=== PATIENT | female | born 1975 | race Hispanic/Latino ===

== ENCOUNTER 2018-04-01 08:33 | Emergency (ER) | payer OTHER ==
[2018-04-01] MEDS ORDERED: MORPHINE 4 MG/ML SYR ONE (09:18)
[2018-04-01] MEDS ORDERED: ONDANSETRON 4 MG/2 ML VIAL ONE (09:18)
[2018-04-01 09:22] LABS: Urine Blood 3+ (NEG); Urine Glucose NEGATIVE (NEG); Urine Protein 2+ (NEG); Urine Specific Gravity 1.025 (1.005-1.030); Urine pH 6.5 (5.0-7.0)
[2018-04-01 09:40] LABS: Absolute Lymphocytes (CBC) 1.2 K/uL (0.7-4.9); Absolute Monocytes 0.8 K/uL (0.1-1.3); Basophils % 0.7 % (0-1.3); Eosinophils % 0.2 % (0-4.4); Hematocrit 39.5 % (36.0-45.0); Lymphocytes % 7.8 % (15.3-44.8); MCH 29.3 pg (27.0-35.0); MCV 87.2 fL (80-100); MPV 8.1 fL (7.6-11.3); RBC Red Blood Cell Count 4.53 M/uL (3.86-4.86)
--- NOTE | 2018-04-01 09:40 | RAD REPORT ---
EXAM DESCRIPTION: CT - Stone Protocol - 04/01/2018 9:30 am CLINICAL HISTORY: Right lower abdominal pain radiating to the back COMPARISON: None. TECHNIQUE: Axial 5 mm thick images were obtained without oral or IV contrast. The [id number] span s the entirety of the system including uppermost abdomen and lung bases. All CT scans are performed using dose optimization technique as appropriate and may include automated exposure control or mA/KV adjustment according to patient size. FINDINGS: Mild right-sided hydronephrosis is present along with stranding in the fatty tissues adjac ent to the ureter. No ureteral calculus present. There are phleboliths in the pelvis that are adjacen t to but not within the ureter. No bladder calculus. Urinary bladder is mostly contracted. No nonobst ructing calculi seen. There is subtle edema of the right kidney relative to the left. No left-sided h ydronephrosis. No suspicious renal masses. Isodense masses and pyelonephritis are not excluded on a s tone protocol CT scan. Right renal findings could indicate a recently passed stone. Blood, inflammato ry debris or even a small mass of the distal ureter can generate this pattern. Imaged portions of the liver, spleen and pancreas show no suspicious findings on non-contrast imaging . Liver shows a fatty infiltration pattern. Cholecystectomy clips are present with no biliary tree di latation. No significant adrenal finding. No suspicious bowel findings. No appendicitis or other acute GI process seen. Uterus and ovaries show no suspicious findings. Uterus appears to contain small fibroids. No mass or bulky lymphadenopathy. Small incidental umbilical hernia is present. No free air, free flu id or inflammatory stranding. No significant bony abnormality. IMPRESSION: Mild right-sided hydronephrosis without obstructing or nonobstructing calculi seen. Righ t kidney also appears mildly edematous relative the left. Patient may have had a recently passed stone. There is no calculus in the bladder. Blood, inflammator y debris and small ureteral mass can give a similar appearance. Isodense masses and pyelonephritis are not excluded on stone protocol study. Fatty infiltration of the liver. Isodense masses and pyelonephritis are not excluded on stone protocol technique.
[2018-04-01 09:47] LABS: Urine Bacteria 20-50 /HPF (<20); Urine Culture Reflex Order REFLEXED; Urine Mucus 1+ /HPF (NONE SEEN); Urine RBC >50 /HPF (NONE SEEN)
[2018-04-01 09:54] LABS: Bicarbonate 26 mEq/L (21-31); Glucose Level 100 mg/dL (65-120); Lipase 26 U/L (22-51); Potassium 3.9 mEq/L (3.6-5.0); Sodium Level 136 mEq/L (135-145)
[2018-04-01 10:00] LABS: ALT/SGPT 31 IU/L (10-60); AST/SGOT 33 IU/L (10-42); Albumin 3.9 g/dL (3.2-5.5); Alkaline Phosphatase 75 IU/L (42-121); Amylase Level 47 U/L (28-100); BUN Blood Urea Nitrogen 8 mg/dL (6-20); Bilirubin Direct 0.2 mg/dL (0-0.2); Bilirubin Total 0.8 mg/dL (0.3-1.2)
[2018-04-01] MEDS ORDERED: NA CHLORIDE 0.9% 1,000 ML ONE (10:12)
[2018-04-01 10:52] LABS: Blood Morphology Comment NOT SEEN (NOT SEEN); Platelet Estimate INCR; Urine White Blood Cell Casts OK
[2018-04-01] MEDS ORDERED: CEFTRIAXONE/SWI 2gm 2 GM/20 ML SYR IV ONE (11:00)
--- NOTE | 2018-04-01 11:54 | ER ---
Nurse's Notes [facility] Name: Bailey Robertson Age: 42 yrs Sex: Female : 1975 Arrival Date: 04/01/2018 Time: 08:36 Bed 14 Private MD: Diagnosis: Urinary tract infection, site not specified Presentation: 04/01 08:38 Presenting complaint: Patient states: abdominal pain down low, goes to my R side and ch into my back. started at 2300 last night. feels like pressure and I have to run to go pee but nothing comes out. Transition of care: patient was not received from another setting of care. Onset of symptoms was March 31, 2018 at 23:00. Initial Sepsis Screen: Does the patient meet any 2 criteria? No. Patient's initial sepsis screen is negative. Does the patient have a suspected source of infection? No. Patient's initial sepsis screen is negative. Care prior to arrival: None. 08:38 Method Of Arrival: Ambulatory 08:38 Acuity: JOSE 3 Triage Assessment: 08:39 General: Appears in no apparent distress. uncomfortable, Behavior is calm, cooperative, ch appropriate for age. Pain: Complains of pain in right lower quadrant and left lower quadrant Pain radiates to posterior aspect of right lateral abdomen and anterior aspect of right lateral abdomen Pain currently is 6 out of 10 on a pain scale. at worst was 8 out of 10 on a pain scale. 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 - Social history:: Smoking status: Patient/guardian denies using tobacco, Patient/guardian denies using alcohol, street drugs. Screenin:45 Abuse screen: Denies threats or abuse. Nutritional screening: No deficits noted. rb1 Tuberculosis screening: No symptoms or risk factors identified. Fall Risk None identified. Assessment: 08:45 General: Appears uncomfortable, obese, Behavior is calm, cooperative, Denies fever. rb1 Pain: Complains of pain in suprapubic area Pain radiates to right flank Pain currently is 8 out of 10 on a pain scale. Pain began Midnight last night. Neuro: Level of Consciousness is awake, alert, obeys commands, Oriented to person, place, time, situation. Cardiovascular: Capillary refill < 3 seconds is brisk in bilateral fingers. Respiratory: Airway is patent Respiratory effort is even, unlabored, Respiratory pattern is regular, symmetrical. GI: Bowel sounds present X 4 quads. Last bowel movement was last night, normal. : Reports pain flank(s), with urination. Derm: Skin is pink, warm \T\ dry. Musculoskeletal: Range of motion: intact in all extremities. 09:45 Reassessment: Patient appears in no apparent distress at this time. Patient and/or rb1 family updated on plan of care and expected duration. Pain level reassessed. Patient is alert, oriented x 3, equal unlabored respirations, skin warm/dry/pink. 10:40 Reassessment: Patient appears in no apparent distress at this time. Patient and/or rb1 family updated on plan of care and expected duration. Pain level reassessed. Patient is alert, oriented x 3, equal unlabored respirations, skin warm/dry/pink. Patient states feeling better. 11:39 Reassessment: Patient appears in no apparent distress at this time. No changes from rb1 previously documented assessment. 12:15 Reassessment: Patient appears in no apparent distress at this time. Patient and/or rb1 family updated on plan of care and expected duration. Pain level reassessed. Patient is alert, oriented x 3, equal unlabored respirations, skin warm/dry/pink. Vital Signs: 08:39 BP 146 / 85; Pulse 92; Resp 15; Temp 98.8; Pulse Ox 99% on R/A; Weight 102.97 kg; Height 5 ft. 7 in. (170.18 cm); Pain 6/10; 09:30 BP 156 / 91; Pulse 89; Resp 18; Pulse Ox 99% on R/A; rb1 10:30 BP 112 / 62; Pulse 79; Resp 17; Pulse Ox 97% on R/A; Pain 2/10; rb1 10:59 BP 112 / 64; Pulse 77; Resp 16; Pulse Ox 98% on R/A; mh5 11:30 BP 128 / 73; Pulse 77; Resp 17; Pulse Ox 96% on R/A; rb1 12:15 BP 126 / 68; Pulse 72; Resp 18; Pulse Ox 99% on R/A; rb1 08:39 Body Mass Index 35.55 (102.97 kg, 170.18 cm) ED Course: 08:36 Patient arrived in ED. sb2 08:39 Triage completed. 08:39 Arm band placed on left wrist. Patient placed in an exam room, on a stretcher. ch 08:48 Amber Tirado, RN is Primary Nurse. rb1 08:52 Darnell Chaves PA is PHCP. cp 08:52 Shira Ma MD is Attending Physician. cp 08:52 Urine collected: clean catch specimen, cloudy. mh5 08:53 Patient has correct armband on for positive identification. Placed in gown. Bed in low mh5 position. Call light in reach. Adult w/ patient. Warm blanket given. Pillow given. Pulse ox on. NIBP on. 09:00 Missed attempt(s): 22 gauge in right antecubital area. rb1 09:10 Inserted saline lock: 22 gauge in left antecubital area, using aseptic technique. Blood rb1 collected. 09:16 Urine Microscopic Only Sent. mh5 09:16 Urine Dipstick--Ancillary (enter results) Sent. mh5 09:16 Urine --Ancillary (enter results) Sent. mh5 09:28 CT completed. Patient tolerated procedure well. Patient moved to CT via wheelchair. sj Patient moved back from CT. 09:29 CT Stone Protocol In Process Unspecified. EDMS 12:21 No provider procedures requiring assistance completed. IV discontinued, intact, jl7 bleeding controlled, No redness/swelling at site. Pressure dressing applied. Administered Medications: 09:15 Drug: morphine 4 mg Route: IVP; Site: left antecubital; rb1 09:45 Follow up: Response: No adverse reaction; Pain is decreased rb1 09:15 Drug: Zofran 4 mg Route: IVP; Site: left antecubital; rb1 09:45 Follow up: Response: No adverse reaction; Nausea is decreased rb1 10:21 Drug: NS 0.9% 1000 ml Route: IV; Rate: 1 bolus; Site: left antecubital; rb1 11:38 Follow up: IV Status: Completed infusion rb1 10:30 Drug: Rocephin - (cefTRIAXone) 2 grams {Note: Had to wait for pharmacy to bring rb1 medication to the floor.} Route: IVPB; Infused Over: 30 mins; Site: left antecubital; Outcome: 11:53 Discharge ordered by . hailey 12:21 Discharged to home ambulatory, with family. rodolfo 12:21 Condition: stable 12:21 Discharge instructions given to patient, family, Instructed on discharge instructions, follow up and referral plans. medication usage, Demonstrated understanding of instructions, follow-up care, medications, Prescriptions given X 2. 12:22 Patient left the ED. jl7 Addendum: 04/04/2018 18:38 Addendum: Culture Results: Positive urine culture. Bacteria is resistant to, has i w intermediate sensitivity, or is not tested against prescribed antibiotics. Report given to NURIS for further evaluation and then to car detailer for follow up with patient. Phone call Attempt #1 pt did not answer, wrong number. Signatures: Dispatcher [employer] EDMS Michell Hilario, Faith Archer RN, ch, Irene, RN RN iw Page, Corey, BHASKAR PA Amber Spaulding, RN RN Vanessa Ervin Suha Zuniga RN RN jl7 Heike Frey sb2 Corrections: (The following items were deleted from the chart) 04/01 09:28 09:28 Missed attempt(s): 22 gauge in right antecubital area. rb1 rb1 09:29 09:15 Inserted saline lock: 22 gauge in left antecubital area, using aseptic technique. rb1 Blood collected. rb1
--- NOTE | 2018-04-01 11:54 | EDPHYS ---
Physician Documentation [facility] Name: Bailey Robertson Age: 42 yrs Sex: Female : 1975 Arrival Date: 04/01/2018 Time: 08:36 Bed 14 Private MD: ED Physician Shira Ma HPI: 04/01 09:00 This 42 yrs old Female presents to ER via Ambulatory with complaints of RIGHT cp SIDE PAIN. 09:00 The patient presents with abdominal pain in the right upper quadrant, right lower cp quadrant. 09:00 Onset: The symptoms/episode began/occurred last night, and became worse today. cp Associated signs and symptoms: Pertinent positives: nausea, urinary urgency, urinary frequency, Pertinent negatives: constipation, diarrhea, fever, vomiting. The symptoms are described as pressure. 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 - Social history:: Smoking status: Patient/guardian denies using tobacco, Patient/guardian denies using alcohol, street drugs. ROS: 09:05 Constitutional: Negative for body aches, chills, fever, poor PO intake. cp 09:05 Eyes: Negative for injury, pain, redness, and discharge. cp 09:05 ENT: Negative for drainage from ear(s), ear pain, sore throat, difficulty swallowing, difficulty handling secretions. 09:05 Cardiovascular: Negative for chest pain, edema, palpitations. 09:05 Respiratory: Negative for cough, shortness of breath, wheezing. 09:05 Abdomen/GI: Positive for abdominal pain, nausea, of the posterior aspect of right lateral abdomen, anterior aspect of right lateral abdomen and right lower quadrant, Negative for vomiting, diarrhea, constipation. 09:05 Back: Positive for flank pain, on the right, Negative for injury or acute deformity. 09:05 Skin: Negative for cellulitis, rash. 09:05 Neuro: Negative for altered mental status, headache, weakness. 09:05 All other systems are negative. Exam: 09:12 Constitutional: The patient appears in no acute distress, alert, awake, non-toxic, well cp developed, well nourished, uncomfortable. 09:12 Head/Face: Normocephalic, atraumatic. Eyes: Pupils equal round and reactive to light, cp extra-ocular motions intact. Lids and lashes normal. Conjunctiva and sclera are non-icteric and not injected. Cornea within normal limits. Periorbital areas with no swelling, redness, or edema. ENT: Nares patent. No nasal discharge, no septal abnormalities noted. Tympanic membranes are normal and external auditory canals are clear. Oropharynx with no redness, swelling, or masses, exudates, or evidence of obstruction, uvula midline. Mucous membranes moist. Neck: Trachea midline, no thyromegaly or masses palpated, and no cervical lymphadenopathy. Supple, full range of motion without nuchal rigidity, or vertebral point tenderness. No Meningismus. Chest/axilla: Normal chest wall appearance and motion. Nontender with no deformity. No lesions are appreciated. Cardiovascular: Regular rate and rhythm with a normal S1 and S2. No gallops, murmurs, or rubs. Normal PMI, no JVD. No pulse deficits. Respiratory: Lungs have equal breath sounds bilaterally, clear to auscultation and percussion. No rales, rhonchi or wheezes noted. No increased work of breathing, no retractions or nasal flaring. 09:12 Abdomen/GI: Inspection: abdomen appears normal, Bowel sounds: active, all quadrants, Palpation: soft, in all quadrants, moderate abdominal tenderness, in the posterior aspect of right lateral abdomen, anterior aspect of right lateral abdomen and right lower quadrant, rebound tenderness, is not appreciated, voluntary guarding, is elicited in the posterior aspect of right lateral abdomen, anterior aspect of right lateral abdomen and right lower quadrant. 09:12 Back: pain, that is moderate, of the right mid back, ROM is normal. 09:12 Skin: cellulitis, is not appreciated, no rash present. Vital Signs: 08:39 BP 146 / 85; Pulse 92; Resp 15; Temp 98.8; Pulse Ox 99% on R/A; Weight 102.97 kg; ch Height 5 ft. 7 in. (170.18 cm); Pain 6/10; 09:30 BP 156 / 91; Pulse 89; Resp 18; Pulse Ox 99% on R/A; rb1 10:30 BP 112 / 62; Pulse 79; Resp 17; Pulse Ox 97% on R/A; Pain 2/10; rb1 10:59 BP 112 / 64; Pulse 77; Resp 16; Pulse Ox 98% on R/A; mh5 11:30 BP 128 / 73; Pulse 77; Resp 17; Pulse Ox 96% on R/A; rb1 12:15 BP 126 / 68; Pulse 72; Resp 18; Pulse Ox 99% on R/A; rb1 08:39 Body Mass Index 35.55 (102.97 kg, 170.18 cm) ch MDM: 08:52 Patient medically screened. cp 10:00 Differential diagnosis: appendicitis, gastritis, pancreatitis, Pyelonephritis, cp Ureterolithiasis, urinary tract infection. 11:50 Data reviewed: vital signs, nurses notes, lab test result(s), radiologic studies, CT cp scan. 11:50 Counseling: I had a detailed discussion with the patient and/or guardian regarding: the cp historical points, exam findings, and any diagnostic results supporting the discharge/admit diagnosis, lab results, radiology results, the need for outpatient follow up, a family practitioner, to return to the emergency department if symptoms worsen or persist or if there are any questions or concerns that arise at home. Response to treatment: the patient's symptoms have markedly improved after treatment, and as a result, I will discharge patient. 04/01 08:54 Order name: Urine Dipstick--Ancillary (enter results); Complete Time: 09:43 ag 05 09:43 Interpretation: Normal except: UBLD 3+; UPROT 2+; U NIT POSITIVE; UESTR 3+. cp 04/01 08:54 Order name: Urine --Ancillary (enter results); Complete Time: 09:43 ag 04/01 09:03 Order name: Amylase, Serum; Complete Time: 11:24 cp 04/01 09:03 Order name: Basic Metabolic Panel; Complete Time: 11:24 cp 04/01 09:03 Order name: CBC with Diff; Complete Time: 11:24 cp 04/01 11:25 Interpretation: Normal except: WBC 15.1; MCV 87.2; PLT 417; PIPER% 86.3; LYM% 7.8; NEUT A cp 13.0. 04/01 09:03 Order name: Creatinine for Radiology; Complete Time: 11:24 cp 04/01 09:03 Order name: Hepatic Function; Complete Time: 11:24 cp 04/01 11:25 Interpretation: Normal except: GLOB 4.1; A/G 1.0. cp 04/01 09:03 Order name: Lipase; Complete Time: 11:24 cp 04/01 09:03 Order name: Urine Microscopic Only; Complete Time: 09:51 cp 04/01 09:51 Interpretation: Normal except: UWBC 20-50; URBC >50; UBACT 20-50; SQEPI 5-10. cp 04/01 09:03 Order name: CT Stone Protocol; Complete Time: 09:43 cp 04/01 09:49 Order name: Urine Culture EDNH 04/01 10:00 Order name: CBC Smear Scan; Complete Time: 11:24 EDNH 04/01 09:03 Order name: IV Saline Lock; Complete Time: 09:31 cp 04/01 09:03 Order name: Labs collected and sent; Complete Time: 09:31 cp 04/01 09:03 Order name: Urine Dipstick-Ancillary (obtain specimen); Complete Time: 09:31 cp 04/01 11:25 Order name: PO challenge; Complete Time: 11:49 cp Administered Medications: 09:15 Drug: morphine 4 mg Route: IVP; Site: left antecubital; rb1 09:45 Follow up: Response: No adverse reaction; Pain is decreased rb1 09:15 Drug: Zofran 4 mg Route: IVP; Site: left antecubital; rb1 09:45 Follow up: Response: No adverse reaction; Nausea is decreased rb1 10:21 Drug: NS 0.9% 1000 ml Route: IV; Rate: 1 bolus; Site: left antecubital; rb1 11:38 Follow up: IV Status: Completed infusion rb1 10:30 Drug: Rocephin - (cefTRIAXone) 2 grams {Note: Had to wait for pharmacy to bring rb1 medication to the floor.} Route: IVPB; Infused Over: 30 mins; Site: left antecubital; Disposition: 04/01/18 11:53 Discharged to Home. Impression: Urinary tract infection, site not specified. - Condition is Stable. - Discharge Instructions: Urinary Tract Infection. - Prescriptions for Zofran 4 mg Oral Tablet - take 1 tablet by ORAL route every 12 hours As needed; 20 tablet. Bactrim DS 800- 160 mg Oral Tablet - take 1 tablet by ORAL route every 12 hours for 10 days; 20 tablet. - Medication Reconciliation Form, Thank You Letter, Antibiotic Education, Prescription Opioid Use form. - Follow up: Private Physician; When: 1 - 2 days; Reason: Recheck today's complaints. - Problem is new. - Symptoms have improved. Addendum: 04/06/2018 19:54 Co-signature as Attending Physician, Shira Ma MD. m a2 Signatures: Dispatcher [employer] EDMS Michell Hilario, RN RN Darnell Chaves PA PA cp Amber Tirado, RN RN rb1 Suha Parrish RN RN jl7 Shira Ma MD MD ma2 Corrections: (The following items were deleted from the chart) 04/01 12:22 11:53 04/01/2018 11:53 Discharged to Home. Impression: Urinary tract infection, site jl7 not specified. Condition is Stable. Forms are Medication Reconciliation Form, Thank You Letter, Antibiotic Education, Prescription Opioid Use. Follow up: Private Physician; When: 1 - 2 days; Reason: Recheck today's complaints. Problem is new. Symptoms have improved. cp
== END 2018-04-01 12:22 | disposition home or self-care (01) ==
LOC: ER 08:33
DX: N39.0 Urinary tract infection, site not specified (principal)
CPT/HCPCS: 36415; 74176; 76377; 80048; 80076; 81003; 81015; 81025; 82150; 83690; 85025; 87077; 87086; 87088; 87186; 96361; 96374; 96375; 99284; J0696; J2405; J7030

== ENCOUNTER 2020-09-11 21:55 | Emergency (ER) | payer OTHER, SELFPAY ==
--- OUTSIDE RECORDS SUMMARY | 2020-09-11 21:58 | XMS REPORT | Continuity of Care Document ---
:1975 Author Organization [facility] t Address [address] [place] [address] Care Team Providers Name Role Phone Unavailable Unavailable Unavailable Problems This patient has no known problems. Allergies, Adverse Reactions, Alerts This patient has no known allergies or adverse reactions. Medications This patient has no known medications. Procedures This patient has no known procedures. Results Test Description Test Time Test Comments Results Result Sourc e Comments SCR MAMM 2019-05-04 SCR MAMM BILATERAL BILATERAL CAD 10:44:36 CAD DIGITALBILATERAL DIGITAL DIGITAL SCREENING MAMMOGRAM WITH CAD: 04/23/2019CLINICAL: Asymptomatic. Current mammographic images were evaluated by either a [employer] M-Vu or a [employer] ImageChecker CAD (computer aided detection system). Comparison is made to exam dated 02/25/2017 mammogram - [facility]. There are scattered fibroglandular tissues in both breasts. There is a benign intramammary node in both breasts. There also is a benign calcification in the left breast. No suspicious mass, architectural distortion, malignant type calcification, or lymph node abnormality detected. Breast architecture is stable compared to prior exams.IMPRESSION: BENIGNThere is no mammographic evidence of malignancy. Resume annual screening mammography in one year. Yandel hammond/gael:05/04/2019 10:44:36 Integrity Engineer: Karley Weaver MM, [facility]: BIRADS 1-2 Normal Mammogram BI-RADS: 2 Benign
--- NOTE | 2020-09-11 22:09 | EDPHYS ---
Physician Documentation [facility] Name: Bailey Robertson Age: 45 yrs Sex: Female : 1975 Arrival Date: 09/11/2020 Time: 21:58 Bed 5 Private MD: ED Physician Haseeb Lozoya HPI: 09/11 22:30 This 45 yrs old Female presents to ER via Ambulatory with complaints of snw Puncture Wound To Foot. 22:30 The patient presents with an injury, pain, that is acute. The complaints affect the snw left foot. Context: The problem was sustained outdoors, Mechanism of Injury: accidentally kicked a rake and sustained small laceration to dorsum of left foot the patient can fully bear weight. Onset: The symptoms/episode began/occurred suddenly, at 14:00. Associated signs and symptoms: The patient has no apparent associated signs or symptoms. Severity of symptoms: At their worst the symptoms were moderate. The patient has not experienced similar symptoms in the past. It is unknown whether or not the patient has recently seen a physician. 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 - Social history:: Smoking status: Patient denies any tobacco usage or history of. ROS: 22:28 Constitutional: Negative for fever, chills, and weight loss, Eyes: Negative for injury, snw pain, redness, and discharge, ENT: Negative for injury, pain, and discharge, Neck: Negative for injury, pain, and swelling, Cardiovascular: Negative for chest pain, palpitations, and edema, Respiratory: Negative for shortness of breath, cough, wheezing, and pleuritic chest pain, Abdomen/GI: Negative for abdominal pain, nausea, vomiting, diarrhea, and constipation, Back: Negative for injury and pain, : Negative for injury, bleeding, discharge, and swelling, MS/Extremity: Negative for injury and deformity, Neuro: Negative for headache, weakness, numbness, tingling, and seizure, Psych: Negative for depression, anxiety, suicide ideation, homicidal ideation, and hallucinations. 22:28 Skin: Positive for laceration(s), of the dorsum of left foot. Exam: 22:28 Constitutional: This is a well developed, well nourished patient who is awake, alert, snw and in no acute distress. Head/Face: Normocephalic, atraumatic. Eyes: Pupils equal round and reactive to light, extra-ocular motions intact. Lids and lashes normal. Conjunctiva and sclera are non-icteric and not injected. Cornea within normal limits. Periorbital areas with no swelling, redness, or edema. ENT: Nares patent. No nasal discharge, no septal abnormalities noted. Tympanic membranes are normal and external auditory canals are clear. Oropharynx with no redness, swelling, or masses, exudates, or evidence of obstruction, uvula midline. Mucous membranes moist. Neck: Trachea midline, no thyromegaly or masses palpated, and no cervical lymphadenopathy. Supple, full range of motion without nuchal rigidity, or vertebral point tenderness. No Meningismus. Cardiovascular: Regular rate and rhythm with a normal S1 and S2. No gallops, murmurs, or rubs. Normal PMI, no JVD. No pulse deficits. Respiratory: Lungs have equal breath sounds bilaterally, clear to auscultation and percussion. No rales, rhonchi or wheezes noted. No increased work of breathing, no retractions or nasal flaring. Abdomen/GI: Soft, non-tender, with normal bowel sounds. No distension or tympany. No guarding or rebound. No evidence of tenderness throughout. Back: No spinal tenderness. No costovertebral tenderness. Full range of motion. Skin: Warm, dry with normal turgor. Normal color with no rashes, no lesions, and no evidence of cellulitis. dorsum of left foot with small puncture wound. No bleeding, no erythema, minimal edema MS/ Extremity: Pulses equal, no cyanosis. Neurovascular intact. Full, normal range of motion. Psych: Awake, alert, with orientation to person, place and time. Behavior, mood, and affect are within normal limits. 22:28 Chest/axilla: Inspection: normal, Palpation: is normal, Axilla: are normal. 22:28 Neuro: Orientation: is normal, Mentation: is normal. Vital Signs: 22:08 BP 164 / 95; Pulse 103; Resp 16 S; Temp 98.7(O); Pulse Ox 100% on R/A; Weight 102.06 kg bb (R); Height 5 ft. 7 in. (170.18 cm) (R); Pain 5/10; 22:08 Body Mass Index 35.24 (102.06 kg, 170.18 cm) bb MDM: 22:08 Patient medically screened. snw 22:30 Data reviewed: vital signs, nurses notes. Data interpreted: Pulse oximetry: on room air snw is 100 %. Interpretation: normal. Counseling: I had a detailed discussion with the patient and/or guardian regarding: the historical points, exam findings, and any diagnostic results supporting the discharge/admit diagnosis, the need for outpatient follow up, to return to the emergency department if symptoms worsen or persist or if there are any questions or concerns that arise at home. Special discussion: Based on the history and exam findings, there is no indication for further emergent testing or inpatient evaluation. I discussed with the patient/guardian the need to see the primary care provider for further evaluation of the symptoms. 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 Exp: bb 01/21/2023. Lot #: [id number]. } Route: IM; Site: right deltoid; 22:30 Drug: TORadol 60 mg Route: IM; Site: right gluteus; bb Disposition: 23:32 Co-signature as Attending Physician, Haseeb Lozoya MD. tw4 23:32 I agree with the assessment and plan of care. tw4 Disposition: 09/11/20 22:08 Discharged to Home. Impression: Puncture wound without foreign body of foot. - Condition is Stable. - Discharge Instructions: Puncture Wound, Wound Infection, VIS, Tetanus, Diphtheria (Td) - CDC, Wound Care. - Prescriptions for Ultram 50 mg Oral Tablet - take 1 tablet by ORAL route every 6 hours As needed; 12 tablet. Doxycycline Hyclate 100 mg Oral Tablet - take 1 tablet by ORAL route every 12 hours; 20 tablet. - Medication Reconciliation Form, Thank You Letter, Antibiotic Education, Prescription Opioid Use form. - Follow up: Emergency Department; When: As needed; Reason: Worsening of condition. Follow up: Private Physician; When: 1 week; Reason: Recheck today's complaints, Continuance of care, Re-evaluation by your physician. Signatures: Virgen Hancock FNP-C MINE EXPLORATION ENGINEER-[employer] Sulma Mabry RN RN bb Wadley, Terrence, MD MD tw4 Corrections: (The following items were deleted from the chart) 22:30 22:28 Constitutional: This is a well developed, well nourished patient who is awake, snw alert, and in no acute distress. Head/Face: Normocephalic, atraumatic. Eyes: Pupils equal round and reactive to light, extra-ocular motions intact. Lids and lashes normal. Conjunctiva and sclera are non-icteric and not injected. Cornea within normal limits. Periorbital areas with no swelling, redness, or edema. ENT: Nares patent. No nasal discharge, no septal abnormalities noted. Tympanic membranes are normal and external auditory canals are clear. Oropharynx with no redness, swelling, or masses, exudates, or evidence of obstruction, uvula midline. Mucous membranes moist. Neck: Trachea midline, no thyromegaly or masses palpated, and no cervical lymphadenopathy. Supple, full range of motion without nuchal rigidity, or vertebral point tenderness. No Meningismus. Cardiovascular: Regular rate and rhythm with a normal S1 and S2. No gallops, murmurs, or rubs. Normal PMI, no JVD. No pulse deficits. Respiratory: Lungs have equal breath sounds bilaterally, clear to auscultation and percussion. No rales, rhonchi or wheezes noted. No increased work of breathing, no retractions or nasal flaring. Abdomen/GI: Soft, non-tender, with normal bowel sounds. No distension or tympany. No guarding or rebound. No evidence of tenderness throughout. Back: No spinal tenderness. No costovertebral tenderness. Full range of motion. Skin: Warm, dry with normal turgor. Normal color with no rashes, no lesions, and no evidence of cellulitis. MS/ Extremity: Pulses equal, no cyanosis. Neurovascular intact. Full, normal range of motion. Psych: Awake, alert, with orientation to person, place and time. Behavior, mood, and affect are within normal limits. snw 22:31 22:08 09/11/2020 22:08 Discharged to Home. Impression: Puncture wound without foreign bb body of foot. Condition is Stable. Forms are Medication Reconciliation Form, Thank You Letter, Antibiotic Education, Prescription Opioid Use. Follow up: Emergency Department; When: As needed; Reason: Worsening of condition. Follow up: Private Physician; When: 1 week; Reason: Recheck today's complaints, Continuance of care, Re-evaluation by your physician. snw
[2020-09-11] MEDS ORDERED: KETOROLAC 30 MG/ML INJ ONE (22:30)
[2020-09-11] MEDS ORDERED: TETANUS & DIPHTHERIA TOX,ADULT 0.5 ML VIAL ONE (22:30)
[2020-09-11] MEDS ORDERED: DOXYCYCLINE 100 MG CAP PO ONE (22:30)
--- NOTE | 2020-09-11 22:32 | ER ---
Nurse's Notes [facility] Name: Bailey Robertson Age: 45 yrs Sex: Female : 1975 Arrival Date: 09/11/2020 Time: 21:58 Bed 5 Private MD: Diagnosis: Puncture wound without foreign body of foot Presentation: 09/11 22:08 Chief complaint: Patient states: she was helping clean up in the yard and ran into a pitchfork receiving a puncture wound to the top of her left foot she cleaned and disinfected it but now it is swollen. Coronavirus screen: At this time, the client does not indicate any symptoms associated with coronavirus-19. Ebola Screen: No symptoms or risks identified at this time. Initial Sepsis Screen: Does the patient meet any 2 criteria? No. Patient's initial sepsis screen is negative. Does the patient have a suspected source of infection? No. Patient's initial sepsis screen is negative. Risk Assessment: Do you want to hurt yourself or someone else? Patient reports no desire to harm self or others. Onset of symptoms was September 11, 2020. 22:08 Method Of Arrival: Ambulatory bb 22:08 Acuity: JOSE 4 bb Triage Assessment: 22:10 General: Appears in no apparent distress. Behavior is calm, cooperative. Pain: bb Complains of pain in left foot Pain currently is 0 out of 10 on a pain scale. at worst was 5 out of 10 on a pain scale. Neuro: Level of Consciousness is awake, alert, obeys commands, Oriented to person, place, time, situation. Respiratory: Respiratory effort is even, unlabored, Respiratory pattern is regular. Derm: Skin is pink, warm \T\ dry. Musculoskeletal: Circulation, motion, and sensation intact. Reports pain in left foot puncture wound to top of left foot. 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 - Social history:: Smoking status: Patient denies any tobacco usage or history of. Screenin:12 Abuse screen: Denies threats or abuse. Nutritional screening: No deficits noted. bb Tuberculosis screening: No symptoms or risk factors identified. Fall Risk None identified. Assessment: 22:12 Reassessment: No changes from previously documented assessment. see triage assessment. bb Vital Signs: 22:08 BP 164 / 95; Pulse 103; Resp 16 S; Temp 98.7(O); Pulse Ox 100% on R/A; Weight 102.06 kg bb (R); Height 5 ft. 7 in. (170.18 cm) (R); Pain 5/10; 22:08 Body Mass Index 35.24 (102.06 kg, 170.18 cm) bb ED Course: 21:58 Patient arrived in ED. bp1 22:02 Virgen Hancock [facility]C [facility] snw 22:02 Haseeb Lozoya MD is Attending Physician. snw 22:10 Triage completed. bb 22:10 Arm band placed on Patient placed in an exam room, on a stretcher, on pulse oximetry. bb 22:12 Patient has correct armband on for positive identification. Bed in low position. Call bb light in reach. Side rails up X 1. Warm blanket given. 22:12 No provider procedures requiring assistance completed. Patient did not have IV access bb during this emergency room visit. 22:20 Wound care: to puncture located on left foot was cleaned with Hibiclens, dressed with bb Neosporin, band aid. 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 Exp: bb 01/21/2023. Lot #: [id number]. } Route: IM; Site: right deltoid; 22:30 Drug: TORadol 60 mg Route: IM; Site: right gluteus; bb Outcome: 22:08 Discharge ordered by . snw 22:27 Discharged to home ambulatory. 22:27 Condition: stable 22:27 Discharge instructions given to patient, Instructed on discharge instructions, follow up and referral plans. no drinking with medication, no driving heavy equipment, medication usage, wound care, Demonstrated understanding of instructions, follow-up care, medications, wound care, Prescriptions given X 2. 22:31 Patient left the ED. bb Signatures: Virgen Hancock, [employer]-C [employer] Sulma Mabry, RN RN Emmanuelle Moss Brittany bp1
[2020-09-11 22:45] VITALS: BP 164/95; TEMP 98.7; O2SAT 100
== END 2020-09-11 22:31 | disposition home or self-care (01) ==
LOC: ER 21:55
DX: S91.332A Puncture wound without foreign body, left foot, initial encounter (principal); W22.8XXA Striking against or struck by other objects, initial encounter; Y93.89 Activity, other specified; Y92.89 Other specified places as the place of occurrence of the external cause; Z23 Encounter for immunization
CPT/HCPCS: 90471; 90714; 96372; 99284

== ENCOUNTER 2020-12-21 18:49 | Observation (INO) | payer OTHER ==
--- NOTE | 2020-12-21 21:28 | RAD REPORT ---
EXAM DESCRIPTION: RAD - Chest Single View - 12/21/2020 9:20 pm CLINICAL HISTORY: Cough;Dyspnea Chest pain. COMPARISON: No comparisons FINDINGS: Portable technique limits examination quality. Mild bilateral interstitial lung opacities are noted suspicious for viral bronchitis. The heart is no rmal in size. No displaced fractures.
[2020-12-21 21:29] LABS: Absolute Lymphocytes (CBC) 1.4 K/uL (0.7-4.9); Basophils % 0.5 % (0-1.3); Hematocrit 35.4 % (36.0-45.0); Lymphocytes % 19.5 % (15.3-44.8); MPV 7.8 fL (7.6-11.3); RBC Red Blood Cell Count 4.48 M/uL (3.86-4.86)
[2020-12-21] MEDS ORDERED: ENOXAPARIN 100 MG/ML SYR SQ ONE (21:34)
[2020-12-21] MEDS ORDERED: ASPIRIN 81 MG CHEWABLE TABLET ONE (21:34)
[2020-12-21] MEDS ORDERED: dexAMETHasone 10 MG/ML VIAL ONE (21:34)
[2020-12-21] MEDS ORDERED: FAMOTIDINE 20 MG/2 ML VIAL IV ONE (21:34)
[2020-12-21] MEDS ORDERED: NA CHLORIDE 0.9% 1,000 ML ONE (21:34)
[2020-12-21] MEDS ORDERED: CEFTRIAXONE/SWI 1gm 1 GM/10 ML SYR ONE (21:34)
[2020-12-21] MEDS ORDERED: ALBUTEROL INHALER 60 PUFF/8 GM IH ONE (21:35)
[2020-12-21] MEDS ORDERED: AZITHROMYCIN 500 MG INJ IVPB ONE (21:36)
[2020-12-21] MEDS ORDERED: NA CHLORIDE 0.9% 250 ML ONE (21:37)
[2020-12-21 21:51] LABS: ALT/SGPT 66 U/L (12-78); AST/SGOT 73 U/L (15-37); Alkaline Phosphatase 106 U/L (45-117); BUN Blood Urea Nitrogen 9 mg/dL (7-18); Bicarbonate 29 mmol/L (21-32); Bilirubin Direct 0.2 mg/dL (0-0.2); Bilirubin Total 0.8 mg/dL (0.2-1.0); Glucose Level 96 mg/dL (74-106); Magnesium 2.3 mg/dL (1.8-2.4); NT PRO-BNP 27 pg/mL (<125); Potassium 3.2 mmol/L (3.5-5.1); Protein, Total 8.4 g/dL (6.4-8.2); Sodium Level 137 mmol/L (136-145); Troponin (Emerg Dept Use Only) < 0.02 ng/mL (0.0-0.045)
[2020-12-21 21:59] LABS: Protime INR 1.09
--- NOTE | 2020-12-21 22:43 | EDPHYS ---
Physician Documentation [facility] Name: Bailey Robertson Age: 45 yrs Sex: Female : 1975 Arrival Date: 12/21/2020 Time: 18:53 Bed 5 Private MD: ED Physician Darnell Finney HPI: 12/21 21:05 This 45 yrs old Female presents to ER via Ambulatory with complaints of jesus COVID+, Breathing Difficulty. 21:05 The patient has shortness of breath at rest, with light activity. Onset: The jesus symptoms/episode began/occurred 7 day(s) ago. Duration: The symptoms are continuous, and are steadily getting worse. The patient's shortness of breath is aggravated by coughing, is alleviated by nothing. Associated signs and symptoms: The patient has no apparent associated signs or symptoms. Severity of symptoms: At their worst the symptoms were mild in the emergency department the symptoms are unchanged. The patient has not experienced similar symptoms in the past. Historical: - Allergies: 18:59 No Known Allergies; ll1 - PMHx: 18:59 None; ll1 - PSHx: 18:59 Cholecystectomy; Tubal ligation; ll1 - Immunization history:: Flu vaccine is not up to date. - Social history:: Smoking status: Patient denies any tobacco usage or history of. ROS: 21:06 Constitutional: Negative for fever, chills, and weight loss, Eyes: Negative for injury, jesus pain, redness, and discharge, ENT: Negative for injury, pain, and discharge, Neck: Negative for injury, pain, and swelling, Abdomen/GI: Negative for abdominal pain, nausea, vomiting, diarrhea, and constipation, Back: Negative for injury and pain, : Negative for injury, bleeding, discharge, and swelling, MS/Extremity: Negative for injury and deformity, Skin: Negative for injury, rash, and discoloration, Neuro: Negative for headache, weakness, numbness, tingling, and seizure, Psych: Negative for depression, anxiety, suicide ideation, homicidal ideation, and hallucinations, Allergy/Immunology: Negative for hives, rash, and allergies, Endocrine: Negative for neck swelling, polydipsia, polyuria, polyphagia, and marked weight changes, Hematologic/Lymphatic: Negative for swollen nodes, abnormal bleeding, and unusual bruising. 21:06 Cardiovascular: Positive for chest pain, with cough. 21:06 Respiratory: Positive for cough, pleurisy, shortness of breath, at rest. Exam: 21:06 Constitutional: This is a well developed, well nourished patient who is awake, alert, jesus and in no acute distress. Head/Face: Normocephalic, atraumatic. Eyes: Pupils equal round and reactive to light, extra-ocular motions intact. Lids and lashes normal. Conjunctiva and sclera are non-icteric and not injected. Cornea within normal limits. Periorbital areas with no swelling, redness, or edema. ENT: Nares patent. No nasal discharge, no septal abnormalities noted. Tympanic membranes are normal and external auditory canals are clear. Oropharynx with no redness, swelling, or masses, exudates, or evidence of obstruction, uvula midline. Mucous membranes moist. Neck: Trachea midline, no thyromegaly or masses palpated, and no cervical lymphadenopathy. Supple, full range of motion without nuchal rigidity, or vertebral point tenderness. No Meningismus. Chest/axilla: Normal chest wall appearance and motion. Nontender with no deformity. No lesions are appreciated. Respiratory: Lungs have equal breath sounds bilaterally, clear to auscultation and percussion. No rales, rhonchi or wheezes noted. No increased work of breathing, no retractions or nasal flaring. Abdomen/GI: Soft, non-tender, with normal bowel sounds. No distension or tympany. No guarding or rebound. No evidence of tenderness throughout. Back: No spinal tenderness. No costovertebral tenderness. Full range of motion. Skin: Warm, dry with normal turgor. Normal color with no rashes, no lesions, and no evidence of cellulitis. MS/ Extremity: Pulses equal, no cyanosis. Neurovascular intact. Full, normal range of motion. Neuro: Awake and alert, GCS 15, oriented to person, place, time, and situation. Cranial nerves II-XII grossly intact. Motor strength 5/5 in all extremities. Sensory grossly intact. Cerebellar exam normal. Normal gait. Psych: Awake, alert, with orientation to person, place and time. Behavior, mood, and affect are within normal limits. 21:06 Cardiovascular: Rate: tachycardic, Rhythm: regular, Pulses: Pulses are 4+ in bilateral radial, brachial, femoral, popliteal, posterior tibial and and dorsalis pedis arteries.. Heart sounds: normal, Edema: is not appreciated, JVD: is not appreciated. 21:06 Musculoskeletal/extremity: DVT Exam: No signs of deep vein thrombosis. no pain, no swelling, no tenderness, negative Homans' sign noted on exam, no appreciated bluish discoloration, no erythema, no increased warmth. 21:53 ECG was reviewed by the Attending Physician. [facility] Vital Signs: 18:59 BP 144 / 82; Pulse 107; Resp 20; Temp 99.0; Pulse Ox 97% on R/A; Weight 96.62 kg; ll1 Height 5 ft. 7 in. (170.18 cm); Pain 0/10; 12/22 00:19 BP 117 / 75; Pulse 94; Resp 18; Temp 98.5; Pulse Ox 97% on R/A; mg2 12/21 18:59 Body Mass Index 33.36 (96.62 kg, 170.18 cm) ll1 MDM: 12/21 20:40 Patient medically screened. jesus 21:08 Differential diagnosis: Bronchitis CHF exacerbation, Chronic Obstructive Pulmonary jesus Disease abnormal EKG, anxiety, coronary artery disease chest wall pain, cholecystitis, bacterial infection, URI, bronchitis, pleurisy, pneumonia, pulmonary embolus, stable angina, unstable angina, Myocardial Infarction pneumonia, pulmonary edema, Pulmonary Embolism reactive airway disease, Unstable Angina. Antibiotic administration: Rocephin and Zithromax given. HEART Score: History: Slightly Suspicious (0), ECG: Normal (0), Age: > 45 and < 65 years (1), Risk Factors: 1 or 2 risk factors (1), [Obesity] Troponin: < or = 1 x Normal Limit (0). The patient was given aspirin in the Emergency Department. The patient's Wells Deep Vein Thrombosis Score was calculated as follows: Total Score: 0. This patient was found to be at low risk for a deep vein thrombosis by using the Well's assessment criteria Heart Rate >100 BPM (1.5 Pts) Total Score: 0-2 Pts- Low Risk. The patient's pulmonary embolism risk score was calculated as follows: Total Score: 0-2 points. This patient was found to be at low risk for a pulmonary embolism by using the Well's assessment criteria the patients heart rate is greater than 100 beats per minute (1.5 Pts) Total Score: 0-2 points. This patient was found to be at low risk for a pulmonary embolism by using the Well's assessment criteria. ADELA Risk Score: TOTAL SCORE = 0. Immunization status:. Data reviewed: vital signs, nurses notes, lab test result(s), EKG, radiologic studies, CT scan, plain films. Data interpreted: engine monitor: rate is 107 beats/min, rhythm is regular, Pulse oximetry: on room air is 97 %. Test interpretation: by ED physician or midlevel provider: ECG, plain radiologic studies. 12/21 21:03 Order name: Basic Metabolic Panel [facility] 12/21 21:03 Order name: CBC with Diff; Complete Time: 22:05 [facility] 12/21 21:03 Order name: LFT's [facility] 12/21 21:03 Order name: Magnesium [facility] 12/21 21:03 Order name: NT PRO-BNP [facility] 12/21 21:03 Order name: PT-INR; Complete Time: 22:05 [facility] 12/21 21:03 Order name: Troponin (emerg Dept Use Only) [facility] 12/21 21:03 Order name: XRAY Chest (1 view); Complete Time: 22:05 [facility] 12/21 21:03 Order name: Blood Culture Adult (2) [facility] 12/21 21:03 Order name: CT Chest For PE Angio [facility] 12/21 22:37 Order name: Urine Dipstick--Ancillary (enter results) 12/21 22:58 Order name: C-Reactive Protein; Complete Time: 23:19 [facility] 12/21 21:03 Order name: EKG; Complete Time: 21:04 [facility] 12/21 21:03 Order name: Cardiac monitoring; Complete Time: 21:42 [facility] 12/21 21:03 Order name: EKG - Nurse/Tech; Complete Time: 22:50 [facility] 12/21 21:03 Order name: IV Saline Lock; Complete Time: 21:42 [facility] 12/21 21:03 Order name: Labs collected and sent; Complete Time: 21:42 [facility] 12/21 23:40 Order name: Social Service Consult [facility] 12/21 21:03 Order name: O2 Per Protocol; Complete Time: 21:42 [facility] 12/21 21:03 Order name: O2 Sat Monitoring; Complete Time: 21:42 [facility] 12/21 21:05 Order name: Urine Dipstick-Ancillary (obtain specimen); Complete Time: 22:37 [facility] 12/21 21:05 Order name: Urine Test (obtain specimen); Complete Time: 22:37 [facility] EC:53 Rate is 97 beats/min. Rhythm is irregular. QRS [place] is Normal. NE interval is normal. jesus QRS interval is normal. QT interval is normal. No Q waves. T waves are Normal in leads II, III, aVF, V1, V2, V3, V4, V5, V6. Reviewed by me. Administered Medications: 21:40 Drug: Albuterol HFA Inhaler 4 puffs Route: Inhalation; rv 21:40 Drug: NS 0.9% 500 ml Route: IV; Rate: bolus; Site: right antecubital; rv 21:40 Drug: NS 0.9% 1000 ml Route: IV; Rate: 125 ml/hr; Site: right antecubital; rv 21:41 Not Given (NOT AVAILABLE): Ivermectin 12 mg PO once rv 21:41 Drug: Rocephin 1 grams Route: IV; Rate: per protocol; Site: right antecubital; rv 21:41 Drug: Zithromax 500 mg Route: IVPB; Infused Over: 1 hrs; Site: right antecubital; rv 21:42 Drug: Decadron - Dexamethasone 10 mg Route: IVP; Site: right antecubital; rv 21:42 Drug: Pepcid 20 mg Route: IVP; Site: right antecubital; rv 21:43 Drug: Lovenox 1 mg/kg Route: Sub-Q; Site: abdomen; rv 21:43 Drug: Aspirin Chewable Tablet 324 mg Route: PO; rv 12/22 00:14 Drug: Potassium Effervescent Tablet 50 mEq Route: PO; mg2 Disposition: 12/21/20 22:43 Hospitalization ordered by Pawel Gomez for Observation. Preliminary diagnosis are Dyspnea, Chest pain, unspecified, Hypokalemia, SARS-associated coronavirus as the cause of diseases classified elsewhere - covid 19 positive. - Bed requested for Telemetry/MedSurg (observation). - Status is Observation. mg2 - Condition is Fair. - Problem is new. - Symptoms have improved. Signatures: Dispatcher [employer] Inez Meyer RN RN dw Anderson, Corey, MD MD cha Attema, Lee, ENGINEERING PROGRAM ANALYST-C ENGINEERING PROGRAM ANALYST-Cla1 Carlos Almonte, RN RN mg2 Los You, RN RN rv Ashish Romeo RN RN ll1 Corrections: (The following items were deleted from the chart) 12/21 22:44 22:43 Hospitalization Ordered by Tony Dalton DO for Observation. Preliminary la1 diagnosis is Dyspnea; Chest pain, unspecified; Hypokalemia; SARS-associated coronavirus as the cause of diseases classified elsewhere - covid 19 positive. Bed requested for Telemetry/MedSurg (observation). Status is Observation. Condition is Fair. Problem is new. Symptoms have improved. jesus 22:57 22:44 C-REACTIVE PROTEIN+C.LAB.BRZ ordered. EDMS EDMS 12/22 00:11 12/21 22:44 12/21/2020 22:43 Hospitalization Ordered by Pawel Gomez MD for dw Observation. Preliminary diagnosis is Dyspnea; Chest pain, unspecified; Hypokalemia; SARS-associated coronavirus as the cause of diseases classified elsewhere - covid 19 positive. Bed requested for Telemetry/MedSurg (observation). Status is Observation. Condition is Fair. Problem is new. Symptoms have improved. la1 12/22 00:26 00:11 12/21/2020 22:43 Hospitalization Ordered by Pawel Gomez MD for Observation. mg2 Preliminary diagnosis is Dyspnea; Chest pain, unspecified; Hypokalemia; SARS-associated coronavirus as the cause of diseases classified elsewhere - covid 19 positive. Bed requested for Telemetry/MedSurg (observation). Status is Observation. Condition is Fair. Problem is new. Symptoms have improved. dw
--- NOTE | 2020-12-21 22:43 | ER ---
Nurse's Notes [facility] Name: Bailey Robertson Age: 45 yrs Sex: Female : 1975 Arrival Date: 12/21/2020 Time: 18:53 Bed 5 Private MD: Diagnosis: Dyspnea;Chest pain, unspecified;Hypokalemia;SARS-associated coronavirus as the cause of diseases classified elsewhere-covid 19 positive Presentation: 12/21 18:59 Chief complaint: Patient states: Covid Positive last week. Has SOB with exertion, fever ll1 still, fatigue. Coronavirus screen: Client denies travel out of the [place] in the last 14 days. chills, cough unrelated to allergies, diarrhea, difficulty breathing, fatigue, fever, headache, muscle pain, shaking with chills, shortness of breath, Client presents with at least one sign or symptom that may indicate coronavirus-19. Standard/surgical mask placed on the client. Ebola Screen: Patient denies travel to an Ebola-affected area in the 21 days before illness onset. Initial Sepsis Screen: Does the patient meet any 2 criteria? HR > 90 bpm. No. Patient's initial sepsis screen is negative. Does the patient have a suspected source of infection? Yes: Productive cough/pneumonia. Risk Assessment: Do you want to hurt yourself or someone else? Patient reports no desire to harm self or others. Onset of symptoms was December 13, 2020. 18:59 Method Of Arrival: Ambulatory ll1 18:59 Acuity: JOSE 3 ll1 Historical: - Allergies: 18:59 No Known Allergies; ll1 - PMHx: 18:59 None; ll1 - PSHx: 18:59 Cholecystectomy; Tubal ligation; ll1 - Immunization history:: Flu vaccine is not up to date. - Social history:: Smoking status: Patient denies any tobacco usage or history of. Screenin/21 00:20 Abuse screen: Denies threats or abuse. Denies injuries from another. Nutritional mg2 screening: No deficits noted. Tuberculosis screening: No symptoms or risk factors identified. Fall Risk IV access (20 points). Assessment: 12/21 21:40 General: Appears in no apparent distress. comfortable, Behavior is calm, cooperative, mg2 appropriate for age. Pain: Denies pain. Neuro: Level of Consciousness is awake, alert, obeys commands, Oriented to person, place, time, situation. Cardiovascular: Capillary refill < 3 seconds Patient's skin is warm and dry. Rhythm is. Respiratory: Airway is patent Respiratory effort is even, unlabored, Respiratory pattern is regular, symmetrical. Respiratory: Reports shortness of breath. GI: No signs and/or symptoms were reported involving the gastrointestinal system. : No signs and/or symptoms were reported regarding the genitourinary system. EENT: No signs and/or symptoms were reported regarding the EENT system. Derm: Skin is intact, is healthy with good turgor, Skin is pink, warm \T\ dry. normal. Musculoskeletal: Circulation, motion, and sensation intact. Capillary refill < 3 seconds. Vital Signs: 18:59 BP 144 / 82; Pulse 107; Resp 20; Temp 99.0; Pulse Ox 97% on R/A; Weight 96.62 kg; ll1 Height 5 ft. 7 in. (170.18 cm); Pain 0/10; 12/22 00:19 BP 117 / 75; Pulse 94; Resp 18; Temp 98.5; Pulse Ox 97% on R/A; mg2 12/21 18:59 Body Mass Index 33.36 (96.62 kg, 170.18 cm) ll1 ED Course: 12/21 18:53 Patient arrived in ED. mr 18:58 Arm band placed on. ll1 19:02 Triage completed. ll1 20:38 Los You, CARLOS EDUARDO is Primary Nurse. rv 20:40 Darnell Finney MD is Attending Physician. jesus 21:15 Inserted saline lock: 20 gauge in right antecubital area, using aseptic technique. rv Blood collected. 21:15 Initial lab(s) drawn, by va, sent to lab. First set of blood cultures drawn by me. rv 21:19 XRAY Chest (1 view) In Process Unspecified. EDMS 21:35 Second set of blood cultures drawn by me. rv 22:10 CT Chest For PE Angio In Process Unspecified. EDMS 22:41 Tony Dalton DO is Hospitalizing Provider. jesus 22:44 Pawel Gomez MD is Hospitalizing Provider. la1 12/22 00:20 Patient has correct armband on for positive identification. mg2 00:20 No provider procedures requiring assistance completed. Patient admitted, IV remains in mg2 place. Administered Medications: 12/21 21:40 Drug: Albuterol HFA Inhaler 4 puffs Route: Inhalation; rv :40 Drug: NS 0.9% 500 ml Route: IV; Rate: bolus; Site: right antecubital; rv 21:40 Drug: NS 0.9% 1000 ml Route: IV; Rate: 125 ml/hr; Site: right antecubital; rv 21:41 Not Given (NOT AVAILABLE): Ivermectin 12 mg PO once rv 21:41 Drug: Rocephin 1 grams Route: IV; Rate: per protocol; Site: right antecubital; rv 21:41 Drug: Zithromax 500 mg Route: IVPB; Infused Over: 1 hrs; Site: right antecubital; rv 21:42 Drug: Decadron - Dexamethasone 10 mg Route: IVP; Site: right antecubital; rv 21:42 Drug: Pepcid 20 mg Route: IVP; Site: right antecubital; rv 21:43 Drug: Lovenox 1 mg/kg Route: Sub-Q; Site: abdomen; rv 21:43 Drug: Aspirin Chewable Tablet 324 mg Route: PO; rv 12/22 00:14 Drug: Potassium Effervescent Tablet 50 mEq Route: PO; mg2 Outcome: 12/21 22:43 Decision to Hospitalize by Provider. jesus 12/22 00:20 Admitted to Tele accompanied by hernandez, via wheelchair, room 410, with chart, Report mg2 called to CARLOS EDUARDO [place] Condition: stable Instructed on the need for admit, Demonstrated understanding of instructions. 00:26 Patient left the ED. mg2 Signatures: Dispatcher [employer] EDMA Darnell Finney MD MD cha Rivera, Jewels SimonmaikelHaseeb, WEB DESIGNER DEVELOPER-C WEB DESIGNER DEVELOPER-Cla1 Carlos Almonte RN RN mg2 Los You RN RN rv Ashish Romeo RN RN ll1 Corrections: (The following items were deleted from the chart) 12/2141 21:41 Ivermectin 12 mg PO rv rv
--- NOTE | 2020-12-21 23:46 | P.HP ---
Certification for Inpatient Patient admitted to: Observation With expected LOS: <2 Midnights Patient will require the following post-hospital care: None Practitioner: I am a practitioner with admitting privileges, knowledge of patient current condition, hospital course, and medical plan of care. Services: Services provided to patient in accordance with Admission requirements found in Title 42 Section 412.3 of the Code of Federal Regulations <Haseeb Mckenzie - Last Filed: 12/21/20 23:42> Patient History Date of Service: 12/21/20 Primary Care Provider: none Reason for admission: Dyspnea, COVID + History of Present Illness: 45-year-old female with no significant past medical history presents to the emergency department for shortness of breath, patient reports testing positive for COVID on 12/15/2020. Patient reports intermittent fever, increasing shortness of breath and dyspnea on exertion over the course of the last few days. Patient was evaluated in the emergency room labs significant for potassium 3.2 C-reactive protein 115. Chest x-ray shows mild bilateral interstitial lung opacities. CT negative for PE or dissection. Patient with significant dyspnea on exertion, sats to the low 90s, ED provider wishes to admit patient for further evaluation and management. - Past Medical/Surgical History -: none -: Tubal ligation Psychosocial/ Personal History: Patient lives at home with family - Family History Family History: Reviewed- Non-Contributory - Social History Smoking Status: Never smoker Alcohol use: No CD- Drugs: No Caffeine use: No Place of Residence: Home <Haseeb Mckenzie - Last Filed: 12/21/20 23:42> Date of Service: 12/25/20 <Pawel Gomez - Last Filed: 12/25/20 20:28> Allergies No Known Allergies Allergy (Verified 12/22/20 02:14) Home Medications: Aspirin [Aspirin EC 81 MG] 81 mg PO DAILY 30 Days #30 tablet. 12/22/20 Ivermectin 18 mg PO ONCE #6 tablet 12/22/20 predniSONE [Deltasone] 20 mg PO SEECOM #21 tab 12/22/20 Review of Systems Respiratory: Shortness of Breath, SOB with Excertion Cardiovascular: Chest Pain <Haseeb Mckenzie - Last Filed: 12/21/20 23:42> Physical Examination - Physical Exam General: Alert, In no apparent distress HEENT: Atraumatic, PERRLA, Mucous membr. moist/pink Neck: Supple, 2+ carotid pulse no bruit, No LAD Respiratory: Clear to auscultation bilaterally, Diminished (Bilaterally) Cardiovascular: Regular rate/rhythm, Normal S1 S2 Gastrointestinal: Normal bowel sounds, No tenderness Musculoskeletal: No tenderness Integumentary: No rashes Neurological: Normal speech, Normal strength at 5/5 x4 extr, Normal tone Lymphatics: No axilla or inguinal lymphadenopathy - Studies Laboratory Data (last 24 hrs) 12/21/20 21:15: PT 12.8 H, INR 1.09 12/21/20 21:15: WBC 7.1, Hgb 11.6 L, Hct 35.4 L, Plt Count 362 12/21/20 21:15: Sodium 137, Potassium 3.2 L, BUN 9, Creatinine 0.65, Glucose 96, Magnesium 2.3, Total Bilirubin 0.8, AST 73 H, ALT 66, Alkaline Phosphatase 106 <Haseeb Mckenzie - Last Filed: 12/21/20 23:42> Assessment and Plan - Plan Assessment Dyspnea and chest pain on exertion secondary to COVID-19 Plan Dyspnea and chest pain on exertion secondary to COVID-19: IV steroids, supplements. Trend is CRP level. Check room air saturations with exertion to see if patient would benefit from home oxygen. Trend troponins. DVT prophylaxis with Lovenox 40 mg subcutaneous twice daily. Likely discharge tomorrow. Discharge Plan: Home Plan to discharge in: 24 Hours - Advance Directives Does patient have a Living Will: No Does patient have a Durable POA for Healthcare: No - Code Status/Comfort Care Code Status Assessed: Yes (Full code) Critical Care: No Time Spent Managing Pts Care (In Minutes): 55 <Haseeb Mckenzie - Last Filed: 12/21/20 23:42> - Plan Agree with plan of care as noted above by Haseeb Mckenzie. COVID-19 pneumonia trend troponin, r/o ACS. pain consistent with pleuritic chest pain <Pawel Gomez - Last Filed: 12/25/20 20:28>
[2020-12-22] MEDS ORDERED: POTASSIUM 25 MEQ EFFERV TAB ONE (00:38)
[2020-12-22] MEDS ORDERED: ONDANSETRON 4 MG/2 ML VIAL IV PRN (00:40)
[2020-12-22 02:09] VITALS: BMI 34.0
[2020-12-22 06:45] LABS: Absolute Lymphocytes (CBC) 0.8 K/uL (0.7-4.9); Basophils % 0.1 % (0-1.3); Hematocrit 37.9 % (36.0-45.0); Lymphocytes % 14.6 % (15.3-44.8); MPV 7.9 fL (7.6-11.3); RBC Red Blood Cell Count 4.71 M/uL (3.86-4.86)
[2020-12-22 07:13] LABS: BUN Blood Urea Nitrogen 9 mg/dL (7-18); Bicarbonate 28 mmol/L (21-32); Glucose Level 137 mg/dL (74-106); Magnesium 2.6 mg/dL (1.8-2.4); Potassium 4.1 mmol/L (3.5-5.1); Sodium Level 139 mmol/L (136-145); Thyroid Stimulating Hormone 0.682 uIU/mL (0.360-3.740); Troponin I < 0.02 ng/mL (0.0-0.045)
[2020-12-22] MEDS ORDERED: THIAMINE 200 MG/2 ML INJ IVP SCH (09:00)
[2020-12-22] MEDS ORDERED: ASPIRIN EC 81 MG TAB PO SCH (09:00)
[2020-12-22] MEDS ORDERED: METHYLPREDNISOLONE 40 MG INJ IV SCH (09:00)
[2020-12-22] MEDS ORDERED: ZINC SULFATE 220 MG CAP PO SCH (09:00)
[2020-12-22] MEDS ORDERED: VITAMIN D 1000 UNIT TAB PO SCH (09:00)
[2020-12-22] MEDS ORDERED: ENOXAPARIN 40 MG/0.4 ML SQ SCH (09:00)
[2020-12-22] MEDS: ASCORBIC ACID 500 MG TABLET PO SCH ×2 (09:35→13:21)
[2020-12-22] MEDS: ACETAMINOPHEN 500 MG TAB PO PRN ×2 (10:24→14:48)
[2020-12-22 11:00] VITALS: O2SAT 96
[2020-12-22] MEDS ORDERED: IVERMECTIN 3 MG TABLET PO ONE (11:00)
--- NOTE | 2020-12-22 14:44 | P.DS ---
Admission Date: 12/21/20 Discharge Date: 12/22/20 Primary Care Provider: none Disposition: ROUTINE DISCHARGE Discharge Condition: GOOD Reason for Admission: Dyspnea, COVID + Procedures: CXR (12/21): mild b/l insterstitial lung opacities are noted suspicious for viral bronchitis. CTA (12/21): no PE. bilateral atelectasis with probable superimposed pneumonia. Heart is moderately enlarged. Trace right pleural effusion. Problem List: COVID-19 pneumonia Chest pain Brief History of Present Illness: 45yo F, no significant PMH, presented to ED with SOB and h/o COVID+ on 12/15. Reports intermittent fever, increasing shortness of breath and dyspnea on exertion over the course of the last few days. Patient was evaluated in the emergency room labs significant for potassium 3.2 C-reactive protein 115. Chest x-ray shows mild bilateral interstitial lung opacities. CT negative for PE or dissection. Patient with significant dyspnea on exertion, sats to the low 90s on room air, ED provider wishes to admit patient for further evaluation and management. Hospital Course: Patient reported having chest pain, aggravated by inspiration, located mid- sternum, no radiation over the past 2 days as well. No family history of cardiac disease. EKG without ischemic changes. Troponin negative x 3. ACS was ruled out. Patient was treated for her mild COVID pneumonia with steroids and ivermectin. Her SpO2 remained 92-95% on RA at rest. She was discharged home on prednisone, aspirin, and a 2nd dose of ivermectin. She is to f/u with Dr. Stover in 1 week. Vital Signs/Physical Exam: Temp Pulse Resp BP Pulse Ox 97 F 91 H 18 115/65 92 12/22/20 12:00 12/22/20 12:00 12/22/20 12:00 12/22/20 12:00 12/22/20 12:00 General: Alert, In no apparent distress, Oriented x3 HEENT: Sclerae nonicteric Neck: Supple Respiratory: Clear to auscultation bilaterally, Diminished (at bases bilaterally, non-labored on room air) Cardiovascular: No edema, Regular rate/rhythm Gastrointestinal: Soft and benign, Non-distended, No tenderness Musculoskeletal: No tenderness Integumentary: No rashes Neurological: Normal speech, Normal affect Laboratory Data at Discharge: WBC 5.3 K/uL (4.3-10.9) D 12/22/20 06:21 Hgb 12.0 g/dL (12.0-15.0) 12/22/20 06:21 Hct 37.9 % (36.0-45.0) 12/22/20 06:21 Plt Count 409 K/uL (152-406) H 12/22/20 06:21 PT 12.8 SECONDS (9.5-12.5) H 12/21/20 21:15 INR 1.09 12/21/20 21:15 Sodium 139 mmol/L (136-145) 12/22/20 06:21 Potassium 4.1 mmol/L (3.5-5.1) 12/22/20 06:21 BUN 9 mg/dL (7-18) 12/22/20 06:21 Creatinine 0.59 mg/dL (0.55-1.3) 12/22/20 06:21 Glucose 137 mg/dL (74-106) H 12/22/20 06:21 Magnesium 2.6 mg/dL (1.8-2.4) H 12/22/20 06:21 Total Bilirubin 0.8 mg/dL (0.2-1.0) 12/21/20 21:15 AST 73 U/L (15-37) H 12/21/20 21:15 ALT 66 U/L (12-78) 12/21/20 21:15 Alkaline Phosphatase 106 U/L (45-117) 12/21/20 21:15 Troponin I < 0.02 ng/mL (0.0-0.045) 12/22/20 12:27 Home Medications: Aspirin [Aspirin EC 81 MG] 81 mg PO DAILY 30 Days #30 tablet. 12/22/20 Ivermectin 18 mg PO ONCE #6 tablet 12/22/20 predniSONE [Deltasone] 20 mg PO SEECOM #21 tab 12/22/20 New Medications: Aspirin [Aspirin EC 81 MG] 81 mg PO DAILY 30 Days #30 tablet. Ivermectin 18 mg PO ONCE #6 tablet predniSONE [Deltasone] 20 mg PO SEECOM #21 tab Patient Discharge Instructions: Your chest pain is likely due to COVID-19 pneumonia. Your EKG, cardiac enzymes were normal. You are prescribed prednisone, aspirin, and ivermectin for treatment of your COVID-19 pneumonia. Follow up with Dr. Stover ([facility] [employer]) in ~1 week. If your chest pain persists after the next several days, recommend follow up with Cardiology. If your chest pain worsens / significantly changes, present to ED. Diet: Regular Activity: Ad tess Followup: Anthony Stover MD [ACTIVE - CAN ADMIT] - Time spent managing pt's care (in minutes): 45
[2020-12-22 15:47] VITALS: BP 120/70; TEMP 97.1
--- NOTE | 2020-12-23 11:31 | RAD REPORT ---
EXAM DESCRIPTION: CT - Chest For Pe Angio - 12/22/2020 7:12 am CLINICAL HISTORY: Chest pain;Cough;Dyspnea COMPARISON: None. TECHNIQUE: CT CHEST ANGIOGRAPHY WITH IV CONTRAST on 12/21/2020 9:03 PM [employer]. MIPS reconstructions were generated. This exam was performed according to our departmental dose-optimization program, which includes autom ated exposure control, adjustment of the mA and/or kV according to patient size and/or use of iterati ve reconstruction technique. MIP images were generated. FINDINGS: Thoracic aorta is normal in course and caliber without aneurysm or dissection. Pulmonary a rteries are adequately opacified without acute or chronic filling defects. The heart is moderately enlarged. There is no pericardial effusion. Intrathoracic lymph nodes are not enlarged. There is a trace right pleural effusion. Central airways are patent. There are moderate streaky areas of atelectasis in the lower lobes. There is probable superimposed patchy airspace disease as well, e specially in the lower lobes and right upper lobe. There are no acute abnormalities within the limited images of the upper abdomen. There are no acute osseous findings. No suspicious bony lesions. IMPRESSION: Cardiomegaly with no aortic dissection or aneurysm. No pulmonary embolus. Bilateral atelectasis with probable superimposed pneumonia. Electronically signed by: Haja Darden MD 12/21/2020 10:31 PM [employer] Due to temporary technical issues with the PACS/Fluency reporting system, reports are being signed by the in house radiologist without review as a courtesy to ensure prompt reporting. The interpreting r adiologist is fully responsible for the content of the report.
== END 2020-12-22 16:00 | disposition home or self-care (01) ==
LOC: ER 18:49 → ERHOLD 23:35 → 4TH 12-22 00:21
PROVIDERS: ADMIT Hospitalist; ATTEND Hospitalist
DX: U07.1 COVID-19 (principal); J12.82 Pneumonia due to coronavirus disease 2019; R94.31 Abnormal electrocardiogram [ECG] [EKG]
CPT/HCPCS: 87040 ×2; 85025 ×2; 80048 ×2; 36415; 83735 ×2; 85610; 80076; 84443; 84484 ×3; 84439; 83880; 86140 ×2; 71275; 71045; 96375; 96372; 96374; 99285; Q9967; J0456; J1650 ×2; J1100; J0696; J7050; J7030; J2920

== ENCOUNTER 2021-02-06 13:41 | Observation (INO) | payer OTHER ==
--- OUTSIDE RECORDS SUMMARY | 2021-02-06 13:43 | XMS REPORT | Continuity of Care Document ---
:1975 Author Organization [facility] t Address [address] [place] [address] Care Team Providers Name Role Phone Lab, Fam Pob I Attending Clinician Unavailable Problems This patient has no known problems. Allergies, Adverse Reactions, Alerts This patient has no known allergies or adverse reactions. Medications This patient has no known medications. Procedures This patient has no known procedures. Encounters Start End Encounter Admission Attending Care Care Encounter Source Date/Time Date/Time Type Type Clinicians Facility Department ID 2020-11-22 2020-11-22 Laboratory Lab, [facility] [id number] 08:07:13 08:27:13 Only Fam Pob I [facility] [id number] [facility] [id number] [id number] [address] Results Test Description Test Time Test Comments Results Result [facility] e Comments SCR MAMM 2019-05-04 - SCR MAMM BILATERAL BILATERAL CAD 10:44:36 CAD DIGITALBILATERAL DIGITAL DIGITAL SCREENING MAMMOGRAM WITH CAD: 04/23/2019CLINICAL: Asymptomatic. Current mammographic images were evaluated by either a JRD Communication M-Vu or a Hologic ImageChecker CAD (computer aided detection system). Comparison is made to exam dated 02/25/2017 mammogram - [facility]. There are scattered fibroglandular tissues [...] mammography in one year. Yandel hammond/gael:05/04/2019 10:44:36 Area Operations Director: Karley Weaver MM, [facility]ography[facility] sent: BIRADS 1-2 Normal Mammogram BI-RADS: 2 Benign
--- NOTE | 2021-02-06 17:46 | RAD REPORT ---
EXAM DESCRIPTION: RAD - Chest Single View - 02/06/2021 5:40 pm CLINICAL HISTORY: ABDOMINAL DISTENTION Chest pain. COMPARISON: Chest Single View dated 12/21/2020 FINDINGS: Portable technique limits examination quality. The lungs are grossly clear. The heart is normal in size. No displaced fractures. IMPRESSION: No acute intrathoracic process suspected.
--- NOTE | 2021-02-06 18:11 | RAD REPORT ---
EXAM DESCRIPTION: CTAbdomen Pelvis W Contrast - 02/06/2021 6:01 pm CLINICAL HISTORY: Abdominal pain. ABD PAIN COMPARISON: No comparisons TECHNIQUE: Biphasic CT imaging of the abdomen and pelvis was performed with 100 ml non-ionic IV cont rast. All CT scans are performed using dose optimization technique as appropriate and may include automated exposure control or mA/KV adjustment according to patient size. FINDINGS: The lung bases are clear.Cholecystectomy. The liver, spleen, pancreas, adrenal glands and kidneys are within normal limits. No bowel obstruction, free air, free fluid or abscess. Moderate inflammation surrounds a 5 cm loop of the sigmoid colon in the anterior pelvis. This most likely represents acute diverticulitis. The appe ndix is not identified as a discrete structure, however, no secondary findings of appendicitis are id entified. Mild free fluid is seen in the pelvis. No evidence of significant lymphadenopathy. Mild lumbosacral degenerative changes. IMPRESSION: Mild acute sigmoid diverticulitis is suspected. After appropriate treatment, followup co lonoscopy would be advised to exclude potential of inflammatory mass in the region. No abscess is evident.
[2021-02-06 18:20] LABS: ALT/SGPT 24 U/L (12-78); AST/SGOT 11 U/L (15-37); Albumin 3.3 g/dL (3.4-5.0); Alkaline Phosphatase 96 U/L (45-117); BUN Blood Urea Nitrogen 10 mg/dL (7-18); Bicarbonate 28 mmol/L (21-32); Bilirubin Direct 0.2 mg/dL (0-0.2); Bilirubin Total 0.8 mg/dL (0.2-1.0); Glucose Level 83 mg/dL (74-106); Lipase 179 U/L (73-393); Potassium 3.7 mmol/L (3.5-5.1); Sodium Level 140 mmol/L (136-145)
[2021-02-06 18:37] LABS: Absolute Lymphocytes (CBC) 1.7 K/uL (0.7-4.9); Basophils % 0.6 % (0-1.3); Lymphocytes % 11.8 % (15.3-44.8); MPV 8.3 fL (7.6-11.3); RBC Red Blood Cell Count 4.39 M/uL (3.86-4.86)
[2021-02-06] MEDS ORDERED: MORPHINE 2 MG/ML SYR ONE (18:49)
[2021-02-06] MEDS ORDERED: ONDANSETRON 4 MG/2 ML VIAL ONE (18:49)
[2021-02-06] MEDS ORDERED: METRONIDAZOLE 500mg IVPB 500 MG/100 ML BAG IV ONE (18:49)
[2021-02-06] MEDS ORDERED: CIPROFLOXACIN 400mg IV 400 MG/200 ML BAG IV ONE (18:49)
[2021-02-06] MEDS ORDERED: FAMOTIDINE 20 MG/2 ML VIAL IV ONE (18:49)
[2021-02-06] MEDS ORDERED: CEFTRIAXONE/SWI 1gm 1 GM/10 ML SYR ONE (18:49)
--- NOTE | 2021-02-06 19:02 | ER ---
Nurse's Notes [facility] Name: Bailey Robertson Age: 45 yrs Sex: Female : 1975 Arrival Date: 02/06/2021 Time: 13:44 Bed 19 Private MD: Diagnosis: Abdominal tenderness;Elevated white blood cell count;Diverticulitis of large intestine without perforation or abscess without bleeding-sigmoid Presentation: 02/06 13:50 Chief complaint: Patient states: Lower mid abd pain for 2 days. No fever or dysuria. No ll1 N/V/D. Coronavirus screen: Client denies travel out of the [place] in the last 14 days. At this time, the client does not indicate any symptoms associated with coronavirus-19. Ebola Screen: Patient denies travel to an Ebola-affected area in the 21 days before illness onset. Initial Sepsis Screen: Does the patient meet any 2 criteria? HR > 90 bpm. No. Patient's initial sepsis screen is negative. Does the patient have a suspected source of infection? Yes: Acute abdominal pain. Risk Assessment: Do you want to hurt yourself or someone else? Patient reports no desire to harm self or others. Onset of symptoms was February 05, 2021. 13:50 Method Of Arrival: Ambulatory ll1 13:50 Acuity: JOSE 3 ll1 Historical: - Allergies: 13:50 No Known Allergies; ll1 - PMHx: 13:50 None; ll1 - PSHx: 13:50 Tubal ligation; Cholecystectomy; ll1 - Immunization history:: Flu vaccine is not up to date. - Social history:: Smoking status: Patient denies any tobacco usage or history of. - Family history:: not pertinent. Screenin:45 Abuse screen: Denies threats or abuse. Nutritional screening: No deficits noted. Tuberculosis screening: No symptoms or risk factors identified. Fall Risk None identified. Assessment: 17:45 Reassessment: Patient appears in no apparent distress at this time. No changes from previously documented assessment. Patient and/or family updated on plan of care and expected duration. Pain level reassessed. Patient is alert, oriented x 3, equal unlabored respirations, skin warm/dry/pink. 18:45 Reassessment: Patient appears in no apparent distress at this time. No changes from bw previously documented assessment. Patient and/or family updated on plan of care and expected duration. Pain level reassessed. Patient is alert, oriented x 3, equal unlabored respirations, skin warm/dry/pink. Pain: Complains of pain in abdomen. GI: Bowel sounds present X 4 quads. Abd is soft Abdomen is tender to palpation. : No deficits noted. 19:40 Reassessment: Patient and/or family updated on plan of care and expected duration. Pain ll2 level reassessed. Patient is alert, oriented x 3, equal unlabored respirations, skin warm/dry/pink. 02/07 04:30 Reassessment: Assumed care of PT. [email or web address] Vital Signs: 02/06 13:50 BP 150 / 71; Pulse 108; Resp 17; Temp 98.1; Pulse Ox 100% ; Weight 96.62 kg; Height 5 ll1 ft. 7 in. (170.18 cm); Pain 8/10; 16:45 BP 148 / 74; Pulse 102; Resp 18; Pulse Ox 100% on R/A; bw 17:45 BP 146 / 78; Pulse 104; Resp 20; Pulse Ox 98% on R/A; bw 18:45 BP 141 / 76; Pulse 100; Resp 18; Pulse Ox 100% on R/A; bw 19:45 BP 138 / 81; Pulse 92; Resp 20; Pulse Ox 100% on R/A; ll2 20:45 BP 153 / 97; Pulse 91; Resp 18; Pulse Ox 100% on R/A; ll2 21:45 BP 133 / 79; Pulse 90; Resp 20; Pulse Ox 100% on R/A; ll2 13:50 Body Mass Index 33.36 (96.62 kg, 170.18 cm) ll1 ED Course: 13:44 Patient arrived in ED. mr 13:50 Arm band placed on. ll1 13:53 Triage completed. ll1 16:55 Darnell Finney MD is Attending Physician. jesus 17:28 Luz Márquez, CARLOS EDUARDO is Primary Nurse. bw 17:40 Chest Single View XRAY In Process Unspecified. EDMS 18:09 CT Abd/Pelvis - IV Contrast Only In Process Unspecified. EDMS 18:36 Basic Metabolic Panel Sent. bw 18:45 Patient has correct armband on for positive identification. Call light in reach. Side bw rails up X 1. 18:45 No provider procedures requiring assistance completed. Inserted saline lock: 20 gauge bw in right antecubital area, using aseptic technique. 18:59 Shira Garcia MD is Hospitalizing Provider. [facility] Administered Medications: 18:45 Drug: morphine 2 mg Route: IVP; Site: right antecubital; bw 18:45 Drug: Zofran (Ondansetron) 4 mg Route: IVP; Site: right antecubital; bw 18:45 Drug: Pepcid 20 mg Route: IVP; Site: right antecubital; bw 20:45 Follow up: Response: No adverse reaction ll2 18:45 Drug: Flagyl 500 mg Volume: 100 ml; Route: IVPB; Rate: 200 ml/hr; Infused Over: 30 bw mins; Site: right antecubital; 19:19 Follow up: Response: No adverse reaction bw 18:45 Drug: Rocephin 1 grams Route: IV; Rate: per protocol; Site: right antecubital; bw 19:19 Follow up: Response: No adverse reaction; IV Status: Completed infusion bw 20:30 Drug: Cipro 400 mg Volume: 200 ml; Route: IVPB; Infused Over: 60 mins; Site: right ll2 antecubital; Outcome: 19:02 Decision to Hospitalize by Provider. [facility] 02/07 13:17 Patient left the ED. Signatures: Dispatcher [employer] Darnell Douglas MD MD cha Rivera, Mary mr BrysonHakan RN RN jb4 Amy Mendenhall RN RN ll2 Ashish Romeo RN RN ll1 Luz Márquez RN RN
--- NOTE | 2021-02-06 19:02 | EDPHYS ---
Physician Documentation [facility] Name: Bailey Robertson Age: 45 yrs Sex: Female : 1975 Arrival Date: 02/06/2021 Time: 13:44 Bed 19 Private MD: ED Physician Darnell Finney HPI: 02/06 17:26 This 45 yrs old Female presents to ER via Ambulatory with complaints of jesus Abdominal Pain. 17:26 The patient presents with abdominal pain in the lower abdomen, abdominal distention in jesus the upper abdomen, in the lower abdomen. Onset: The symptoms/episode began/occurred 1 day(s) ago. The symptoms do not radiate. Associated signs and symptoms: none. The symptoms are described as crampy, dull. Modifying factors: The symptoms are alleviated by nothing, the symptoms are aggravated by movement, pressure, touching the area, walking. Severity of pain: At its worst the pain was moderate in the emergency department the pain is unchanged. The patient has not experienced similar symptoms in the past. Historical: - Allergies: 13:50 No Known Allergies; ll1 - PMHx: 13:50 None; ll1 - PSHx: 13:50 Tubal ligation; Cholecystectomy; ll1 - Immunization history:: Flu vaccine is not up to date. - Social history:: Smoking status: Patient denies any tobacco usage or history of. - Family history:: not pertinent. ROS: 17:26 Constitutional: Negative for fever, chills, and weight loss, Eyes: Negative for injury, jesus pain, redness, and discharge, ENT: Negative for injury, pain, and discharge, Neck: Negative for injury, pain, and swelling, Cardiovascular: Negative for chest pain, palpitations, and edema, Respiratory: Negative for shortness of breath, cough, wheezing, and pleuritic chest pain, Back: Negative for injury and pain, : Negative for injury, bleeding, discharge, and swelling, MS/Extremity: Negative for injury and deformity, Skin: Negative for injury, rash, and discoloration, Neuro: Negative for headache, weakness, numbness, tingling, and seizure, Psych: Negative for depression, anxiety, suicide ideation, homicidal ideation, and hallucinations, Allergy/Immunology: Negative for hives, rash, and allergies, Endocrine: Negative for neck swelling, polydipsia, polyuria, polyphagia, and marked weight changes, Hematologic/Lymphatic: Negative for swollen nodes, abnormal bleeding, and unusual bruising. 17:26 Abdomen/GI: Positive for abdominal pain, of the right lower quadrant and left lower quadrant. Exam: 17:26 Constitutional: This is a well developed, well nourished patient who is awake, alert, jesus and in no acute distress. Head/Face: Normocephalic, atraumatic. Eyes: Pupils equal round and reactive to light, extra-ocular motions intact. Lids and lashes normal. Conjunctiva and sclera are non-icteric and not injected. Cornea within normal limits. Periorbital areas with no swelling, redness, or edema. ENT: Nares patent. No nasal discharge, no septal abnormalities noted. Tympanic membranes are normal and external auditory canals are clear. Oropharynx with no redness, swelling, or masses, exudates, or evidence of obstruction, uvula midline. Mucous membranes moist. Neck: Trachea midline, no thyromegaly or masses palpated, and no cervical lymphadenopathy. Supple, full range of motion without nuchal rigidity, or vertebral point tenderness. No Meningismus. Chest/axilla: Normal chest wall appearance and motion. Nontender with no deformity. No lesions are appreciated. Cardiovascular: Regular rate and rhythm with a normal S1 and S2. No gallops, murmurs, or rubs. Normal PMI, no JVD. No pulse deficits. Respiratory: Lungs have equal breath sounds bilaterally, clear to auscultation and percussion. No rales, rhonchi or wheezes noted. No increased work of breathing, no retractions or nasal flaring. Back: No spinal tenderness. No costovertebral tenderness. Full range of motion. Female : Normal external genitalia. Skin: Warm, dry with normal turgor. Normal color with no rashes, no lesions, and no evidence of cellulitis. MS/ Extremity: Pulses equal, no cyanosis. Neurovascular intact. Full, normal range of motion. Neuro: Awake and alert, GCS 15, oriented to person, place, time, and situation. Cranial nerves II-XII grossly intact. Motor strength 5/5 in all extremities. Sensory grossly intact. Cerebellar exam normal. Normal gait. Psych: Awake, alert, with orientation to person, place and time. Behavior, mood, and affect are within normal limits. 17:26 Abdomen/GI: Inspection: abdomen appears normal, Bowel sounds: normal, in the right lower quadrant and left lower quadrant, Palpation: mild abdominal tenderness, moderate abdominal tenderness, in the suprapubic area, right lower quadrant and left lower quadrant, Liver: no appreciated palpable abnormalities, Hernia: not appreciated. Vital Signs: 13:50 BP 150 / 71; Pulse 108; Resp 17; Temp 98.1; Pulse Ox 100% ; Weight 96.62 kg; Height 5 ll1 ft. 7 in. (170.18 cm); Pain 8/10; 16:45 BP 148 / 74; Pulse 102; Resp 18; Pulse Ox 100% on R/A; bw 17:45 BP 146 / 78; Pulse 104; Resp 20; Pulse Ox 98% on R/A; bw 18:45 BP 141 / 76; Pulse 100; Resp 18; Pulse Ox 100% on R/A; bw 19:45 BP 138 / 81; Pulse 92; Resp 20; Pulse Ox 100% on R/A; ll2 20:45 BP 153 / 97; Pulse 91; Resp 18; Pulse Ox 100% on R/A; ll2 21:45 BP 133 / 79; Pulse 90; Resp 20; Pulse Ox 100% on R/A; ll2 13:50 Body Mass Index 33.36 (96.62 kg, 170.18 cm) ll1 MDM: 16:55 Patient medically screened. jesus 17:30 Differential diagnosis: appendicitis, bowel obstruction, diverticulitis, gastritis, jesus non-specific abd pain, pancreatitis, Peptic Ulcer Disease, Pyelonephritis, Ureterolithiasis, urinary tract infection. Data reviewed: vital signs, nurses notes, lab test result(s), radiologic studies, CT scan. Data interpreted: fluid pump operator: rate is 108 beats/min, rhythm is regular, Pulse oximetry: on room air is 100 %. Test interpretation: by ED physician or midlevel provider: plain radiologic studies. Counseling: I had a detailed discussion with the patient and/or guardian regarding: the historical points, exam findings, and any diagnostic results supporting the discharge/admit diagnosis, lab results, radiology results. 02/06 17:25 Order name: Basic Metabolic Panel [facility] 02/06 17:25 Order name: CBC with Diff; Complete Time: 18:55 [facility] 02/06 17:25 Order name: Hepatic Function; Complete Time: 18:35 [facility] 02/06 17:25 Order name: Lipase; Complete Time: 18:35 [facility] 02/06 17:25 Order name: Urine Culture [facility] 02/06 17:25 Order name: Basic Metabolic Panel; Complete Time: 18:35 [facility] 02/06 17:25 Order name: Chest Single View XRAY; Complete Time: 18:09 [facility] 02/06 17:25 Order name: CT Abd/Pelvis - IV Contrast Only; Complete Time: 18:35 [facility] 02/06 19:12 Order name: Urine Dipstick--Ancillary (enter results) [facility] 02/06 21:08 Order name: SARS-COV-2 RT PCR [facility] 02/07 01:43 Order name: CREATININE WHOLE BLOOD [facility] 02/07 10:06 Order name: CBC with Automated Diff [facility] 02/06 17:25 Order name: IV Saline Lock; Complete Time: 18:36 [facility] 02/06 17:25 Order name: Labs collected and sent; Complete Time: 18:36 [facility] 02/06 17:25 Order name: Urine Dipstick-Ancillary (obtain specimen); Complete Time: 19:16 [facility] 02/06 17:25 Order name: Urine Test (obtain specimen); Complete Time: 19:16 [facility] Administered Medications: 18:45 Drug: morphine 2 mg Route: IVP; Site: right antecubital; bw 18:45 Drug: Zofran (Ondansetron) 4 mg Route: IVP; Site: right antecubital; bw 18:45 Drug: Pepcid 20 mg Route: IVP; Site: right antecubital; bw 20:45 Follow up: Response: No adverse reaction ll2 18:45 Drug: Flagyl 500 mg Volume: 100 ml; Route: IVPB; Rate: 200 ml/hr; Infused Over: 30 bw mins; Site: right antecubital; 19:19 Follow up: Response: No adverse reaction bw 18:45 Drug: Rocephin 1 grams Route: IV; Rate: per protocol; Site: right antecubital; bw 19:19 Follow up: Response: No adverse reaction; IV Status: Completed infusion bw 20:30 Drug: Cipro 400 mg Volume: 200 ml; Route: IVPB; Infused Over: 60 mins; Site: right ll2 antecubital; Disposition: 02/06/21 19:02 Hospitalization ordered by Shira Garcia for Observation. Preliminary diagnosis are Abdominal tenderness, Elevated white blood cell count, Diverticulitis of large intestine without perforation or abscess without bleeding - sigmoid. - Bed requested for [facility] ER HOLD. - Status is Observation. - Condition is Stable. - Problem is new. - Symptoms have improved. Signatures: Dispatcher [employer] [facility] Darnell Finney MD MD cha Garcia, Cindy, RN RN Amy Mendenhall RN RN ll2 Ashish Romeo RN RN ll1 Luz Márquez RN RN bw Corrections: (The following items were deleted from the chart) 20:22 19:57 CORONAVIRUS+MR.LAB.BRZ ordered. [facility] 22:31 19:02 Hospitalization Ordered by Shira Garcia MD for Observation. Preliminary cg diagnosis is Abdominal tenderness; Elevated white blood cell count; Diverticulitis of large intestine without perforation or abscess without bleeding - sigmoid. Bed requested for Telemetry/MedSurg (observation). Status is Observation. Condition is Stable. Problem is new. Symptoms have improved. [facility] 02/07 13:17 03/08 22:31 02/06/2021 19:02 Hospitalization Ordered by Shira Garcia MD for bw Observation. Preliminary diagnosis is Abdominal tenderness; Elevated white blood cell count; Diverticulitis of large intestine without perforation or abscess without bleeding - sigmoid. Bed requested for [facility] ER HOLD. Status is Observation. Condition is Stable. Problem is new. Symptoms have improved.
[2021-02-06 19:21] LABS: Urine Blood TRACE (NEG); Urine Glucose NEGATIVE (NEG); Urine Protein 1+ (NEG); Urine pH 7.5 (5.0-7.0)
--- NOTE | 2021-02-06 21:41 | P.HP ---
Certification for Inpatient Patient admitted to: Observation With expected LOS: <2 Midnights Patient will require the following post-hospital care: None Practitioner: I am a practitioner with admitting privileges, knowledge of patient current condition, hospital course, and medical plan of care. Services: Services provided to patient in accordance with Admission requirements found in Title 42 Section 412.3 of the Code of Federal Regulations <Hunter Jacinto - Last Filed: 02/07/21 01:34> Patient History Date of Service: 02/07/21 Primary Care Provider: Dr. Atkinson Reason for admission: acute diverticulitis History of Present Illness: Patient is a 45yo F with no PMHx here for one day of sharp intermittent lower abdominal pain exacerbated by movement. She denies night sweats, chills, nausea, vomiting, diarrhea, dysuria, nocturia, and frequency. WBC of 14.6. Plt 454. Hgb 11.6, Hct 35. CT scan revealing mild acute sigmoid diverticulitis with need to exclude inflammatory mass in the region with follow up colonoscopy. Home medications list reviewed: No - Past Medical/Surgical History Has patient received pneumonia vaccine in the past: No Diabetic: No -: none -: Tubal ligation -: cholecystectomy Psychosocial/ Personal History: Patient lives at home with family - Social History Smoking Status: Never smoker Alcohol use: No CD- Drugs: No Caffeine use: Yes Place of Residence: Home <Hunter Jacinto - Last Filed: 02/07/21 01:34> Date of Service: 02/07/21 <khadra lundberg - Last Filed: 02/07/21 12:33> Allergies No Known Allergies Allergy (Verified 12/22/20 02:14) Home Medications: Aspirin [Aspirin EC 81 MG] 81 mg PO DAILY 30 Days #30 tablet. 12/22/20 Ciprofloxacin HCl [Cipro 500 MG Tablet] 500 mg PO BID #14 tab 02/07/21 metroNIDAZOLE [Flagyl*] 500 mg PO TID #21 tablet 02/07/21 Review of Systems General: Unremarkable Eyes: Unremarkable ENT: Unremarkable Respiratory: Unremarkable Cardiovascular: Unremarkable Gastrointestinal: Abdominal Pain, No Distention, Constipation, As per HPI Genitourinary: Unremarkable Musculoskeletal: Unremarkable Integumentary: Unremarkable Neurological: Unremarkable Lymphatics: Unremarkable <Hunter Jacinto Last Filed: 02/07/21 01:34> Physical Examination - Vital Signs Temperature: 98.1 F Blood Pressure: 150/71 Pulse: 108 Respirations: 17 Pulse Ox (%): 100 - Physical Exam General: Alert, In no apparent distress, Oriented x3, Cooperative HEENT: Atraumatic, Normocephalic, PERRLA, Mucous membr. moist/pink, EOMI, Sclerae nonicteric Neck: Supple, 2+ carotid pulse no bruit, JVD not distended, No Thyromegaly, No LAD Respiratory: Clear to auscultation bilaterally, Normal air movement Cardiovascular: No edema, Normal pulses, Regular rate/rhythm, Normal S1 S2, No gallops, No rubs, No murmurs Capillary refill: <2 Seconds Gastrointestinal: Normal bowel sounds, Soft and benign, Non-distended, No ascites, No masses, No rebound, No guarding, Tenderness Musculoskeletal: No clubbing, No swelling, No contractures, No erythema, No tenderness, No warmth Integumentary: No rashes, No breakdown, No significant lesion, No tenderness/swelling, No erythema, No warmth, No cyanosis Neurological: Normal gait, Normal speech, Normal strength at 5/5 x4 extr, Normal tone, Sensation intact, Cranial nerves 3-12 intact, Normal affect Lymphatics: No axilla or inguinal lymphadenopathy - Studies Laboratory Data (last 24 hrs) 02/06/21 17:53: WBC 14.60 H, Hgb 11.6 L, Hct 35.0 L, Plt Count 454 H 02/06/21 17:53: Sodium 140, Potassium 3.7, BUN 10, Creatinine 0.53 L, Glucose 83, Total Bilirubin 0.8, AST 11 L, ALT 24, Alkaline Phosphatase 96, Lipase 179 <Hunter Jacinto - Last Filed: 02/07/21 01:34> - Studies Laboratory Data (last 24 hrs) 02/06/21 17:53: WBC 14.60 H, Hgb 11.6 L, Hct 35.0 L, Plt Count 454 H 02/06/21 17:53: Sodium 140, Potassium 3.7, BUN 10, Creatinine 0.53 L, Glucose 83, Total Bilirubin 0.8, AST 11 L, ALT 24, Alkaline Phosphatase 96, Lipase 179 <khadra lundberg - Last Filed: 02/07/21 12:33> Assessment and Plan - Problems (Diagnosis) (1) Diverticulitis Current Visit: Yes Status: Acute Plan: - continue tylenol for pain control - cipro and flagyl PO for 7 days - discharge in AM if pain controlled, tolerating diet and oral abx (2) Abdominal pain Onset Date: 03/05/16 Current Visit: No Status: Acute Plan: currently controlled Qualifiers: Abdominal location: lower abdomen, unspecified Qualified Code(s): R10.30 - Lower abdominal pain, unspecified Discharge Plan: Home Plan to discharge in: 24 Hours - Advance Directives Does patient have a Living Will: No Does patient have a Durable POA for Healthcare: No - Code Status/Comfort Care Code Status Assessed: Yes (full code ) Critical Care: No Time Spent Managing Pts Care (In Minutes): 55 <Hunter Jacinto - Last Filed: 02/07/21 01:34> Physician Review: Patient Assessed, Agree with Above Assessment and Plan Physician Review Additional Text: Diverticulitis. Plan: Place under observation IV hydration IV antibiotics. <khadra lundberg - Last Filed: 02/07/21 12:33>
[2021-02-06] MEDS ORDERED: ACETAMINOPHEN 500 MG TAB PO PRN (23:25)
[2021-02-07] MEDS: metroNIDAZOLE 500 MG TABLET PO SCH ×2 (06:00→09:00)
[2021-02-07] MEDS: CIPROFLOXACIN HCL 500 MG TAB PO SCH ×2 (06:00→09:00)
[2021-02-07] MEDS ORDERED: metroNIDAZOLE 500 MG TABLET ONE (06:36)
[2021-02-07] MEDS ORDERED: CIPROFLOXACIN HCL 500 MG TAB ONE (06:36)
[2021-02-07 06:54] VITALS: BMI 32.8
[2021-02-07] MEDS ORDERED: ENOXAPARIN 40 MG/0.4 ML SQ SCH (09:00)
[2021-02-07 09:59] LABS: Absolute Lymphocytes (CBC) 1.2 K/uL (0.7-4.9); Basophils % 0.8 % (0-1.3); Hematocrit 33.2 % (36.0-45.0); Lymphocytes % 12.3 % (15.3-44.8); MPV 7.9 fL (7.6-11.3); RBC Red Blood Cell Count 4.18 M/uL (3.86-4.86)
[2021-02-07 11:01] VITALS: TEMP 98.2
[2021-02-07 12:18] VITALS: BP 123/76
--- NOTE | 2021-02-07 12:42 | P.DS ---
Admission Date: 02/06/21 Discharge Date: 02/07/21 Primary Care Provider: Dr. Atkinson Disposition: ROUTINE DISCHARGE Discharge Condition: FAIR Reason for Admission: acute diverticulitis - Problems (1) Diverticulitis Current Visit: Yes Status: Acute (2) Abdominal pain Onset Date: 03/05/16 Current Visit: No Status: Acute Qualifiers: Abdominal location: lower abdomen, unspecified Qualified Code(s): R10.30 - Lower abdominal pain, unspecified Brief History of Present Illness: 45-year-old woman presented to the emergency department with a complaint left lower quadrant pain. CT abdomen and pelvis done in the emergency department demonstrated evidence of mild acute sigmoid diverticulitis. There was also concern for inflammatory mass which would need further evaluation as an outpatient with a colonoscopy. The patient was hospitalized for further management. Hospital Course: Patient placed under observation on the medical floor, treated with IV hydration and IV antibiotic. Patient's pain resolved. She had leukocytosis which resolved. She also tolerated liquid diet with no abdominal pain. No fever. Patient is deemed clinically stable for discharge. She is discharged with oral ciprofloxacin and Flagyl to continue treatment for the sigmoid diverticulitis. Patient has been informed she will need a follow up colonoscopy within 4-6 weeks tachycardia rate by her PCP. She voiced understanding. Vital Signs/Physical Exam: Temp Pulse Resp BP Pulse Ox 98.2 F 84 18 123/76 98 02/07/21 11:00 02/07/21 12:14 02/07/21 12:14 02/07/21 12:14 02/07/21 12:14 General: Alert, In no apparent distress, Oriented x3 HEENT: Mucous membr. moist/pink Respiratory: Clear to auscultation bilaterally, Normal air movement Cardiovascular: No edema, Regular rate/rhythm, Normal S1 S2 Gastrointestinal: Normal bowel sounds, Soft and benign, Non-distended, No tenderness Musculoskeletal: No swelling Integumentary: No rashes Neurological: Normal strength at 5/5 x4 extr Laboratory Data at Discharge: WBC 9.60 K/uL (4.3-10.9) D 02/07/21 09:45 Hgb 11.1 g/dL (12.0-15.0) L 02/07/21 09:45 Hct 33.2 % (36.0-45.0) L 02/07/21 09:45 Plt Count 398 K/uL (152-406) 02/07/21 09:45 Sodium 140 mmol/L (136-145) 02/06/21 17:53 Potassium 3.7 mmol/L (3.5-5.1) 02/06/21 17:53 BUN 10 mg/dL (7-18) 02/06/21 17:53 Creatinine 0.53 mg/dL (0.55-1.3) L 02/06/21 17:53 Glucose 83 mg/dL (74-106) 02/06/21 17:53 Total Bilirubin 0.8 mg/dL (0.2-1.0) 02/06/21 17:53 AST 11 U/L (15-37) L 02/06/21 17:53 ALT 24 U/L (12-78) 02/06/21 17:53 Alkaline Phosphatase 96 U/L (45-117) 02/06/21 17:53 Lipase 179 U/L (73-393) 02/06/21 17:53 Home Medications: Aspirin [Aspirin EC 81 MG] 81 mg PO DAILY 30 Days #30 tablet. 12/22/20 Ciprofloxacin HCl [Cipro 500 MG Tablet] 500 mg PO BID #14 tab 02/07/21 metroNIDAZOLE [Flagyl*] 500 mg PO TID #21 tablet 02/07/21 New Medications: Ciprofloxacin HCl [Cipro 500 MG Tablet] 500 mg PO BID #14 tab metroNIDAZOLE [Flagyl*] 500 mg PO TID #21 tablet Physician Discharge Instructions: You will need colonoscopy within 6 weeks. The PCP can refer you to a gastro enterologist in order to have the procedure done. Diet: Only clear liquid diet today, progress to full liquid, then to soft diet, then to solid diet from tomorrow. Diet: AHA Activity: Ad tess Followup: Carla Atkinson NP [Primary Care Provider] -
[2021-02-07 14:26] VITALS: O2SAT 100
== END 2021-02-07 13:20 | disposition home or self-care (01) ==
LOC: ER 13:41 → ERHOLD 19:58
PROVIDERS: ADMIT Internal Medicine; ATTEND Internal Medicine
DX: K57.32 Diverticulitis of large intestine without perforation or abscess without bleeding (principal); Z20.822 Contact with and (suspected) exposure to COVID-19
CPT/HCPCS: 87088; 85025 ×2; 87086; 80048; 36415; 82565; 80076; 81003; 83690; 74177; 71045; U0003; Q9967; J2270; J0696; J2405; J0744; G0378 ×3; 96365; 96375; 99284